=== PATIENT | male | born 1955 | race Caucasian/White ===

== ENCOUNTER 2017-10-28 10:57 | Day surgery (SDC) | payer OTHER, SELFPAY ==
[2017-10-28] VITALS (7 sets, daily range): BP systolic 113–130; BP diastolic 80–94; PULSE 64–74; RESP 16; TEMP 35.8–36.4; O2SAT 97–99; BMI 33.9
--- NOTE | 2017-10-28 11:14 | EKG12_ITS ---
Test Reason : PREOP Blood Pressure : / mmHG Vent. Rate : 066 BPM Atrial Rate : 066 BPM P-R Int : 168 ms QRS Dur : 098 ms QT Int : 410 ms P-R-T Axes : 046 056 026 degrees QTc Int : 429 ms Normal sinus rhythm Normal ECG No previous ECGs available Confirmed by LASHONDA LUNDBERG, RIKY ([id number]), film editor supervisor GLENDY ATKINSON ([id number]) on 11/03/2017 1:41:19 PM Referred By: Efe Felix Confirmed By:RIKY GALLEGO MD
[2017-10-28 11:31] LABS: Hematocrit 47.3 % (40-54); Hemoglobin 16.3 g/dl (13.0-16.5); Mean Corp Hgb Conc 34.5 g/gl (32-36); Mean Corpuscular Hgb 31.5 pg (27.0-32.0); Mean Corpuscular Volume 91.3 fL (80-94); Mean Platelet Vol. 10.9 fl (6.2-12.0); Platelet Count 174 K/mm3 (150-450); RBC Distribution Width CV 13.1 % (11.6-14.6); RBC Distribution Width SD 43.1 fl (35.1-43.9); Red Blood Count 5.18 M/mm3 (4.6-6.2); White Blood Count 7.7 K/mm3 (4.4-11.0)
[2017-10-28 11:36] LABS: Scan Indicated on CBC? Y/N NO
[2017-10-28 11:39] LABS: Anion Gap 7 (5-15); BUN 22 mg/dL (7-18); BUN/Creat Ratio 15.6 RATIO (10-20); Calcium,Total 8.7 mg/dL (8.5-10.1); Chloride 108 mmol/L (98-107); Creatinine, Serum 1.41 mg/dL (0.70-1.30); EST Glomerular Filtration Rate 54 mL/min (>60); Est Glom Filt Rate - Afr Amer 65 mL/min (>60); Estimated Creatinine Clearance 47.76 ml/min; Glucose 124 mg/dL (74-106); Sodium Level 140 mmol/L (136-145)
[2017-10-28 11:40] LABS: Bedside Glucose 121 mg/dL (70-110)
--- NOTE | 2017-10-28 13:00 | LES_PTH ---
PATIENT: SATINDER WALTER LOC: [facility] – [place] U#:[id number] AGE/SX: 62/M ROOM: RE10/28/[address]: Dr. Efe Felix MD : 1955 BED: DIS: 10/28/2017 SPEC #: [id number] RECD: 10/28/17 15:17 STATUS: MICHAEL ISAURA #: [id number] YURI: 10/28/17 13:[address]: Efe Felix DEPT: SURGICAL PATHOLOGY RECD BY: Melchor Matthews ENTERED: 10/29/17 09:28 SP TYPE: Lesion OTHR DR: Dr. 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 See comment. Solar elastosis. COMMENT The tumor measures 1 x 1 cm (measured microscopically) and invades in to the superficial portion of underlying skeletal muscle tissue. Perineural invasion is not seen. The tumor is less than 0.1 cm away from the deep resection margin. MICROSCOPIC DESCRIPTION Slides are reviewed. GROSS DESCRIPTION Received in fixative is one container labeled with the patient's name and designated left forehead skin lesion. The specimen consists of discoid fragment of pink/gasca excised skin measuring 2.2 x 2 and depth of excision measuring 1.1 cm. The specimen is differentiated with ink as follows: superior ? blue, inferior ? black, medial ? orange, and lateral ? green. The specimen is serially sectioned and totally submitted in two cassettes. AM/sp 10/29/17 TC: 0 CPT: 11794 ADDENDUM ADDENDUM ADDENDUM ADDENDUM 11/26/2017 11:56 ADDENDUM 11/26/2017 11:56 ADDENDUM 11/26/2017 11:56 ADDENDUM 11/26/2017 11:56 ADDENDUM 11/26/2017 11:56 The tumor measures 0.9 mm in depth and is present <1 mm from the deep margin of resection. Case was discussed with Dr. Munoz 11/24/17.
--- NOTE | 2017-10-28 13:06 | DCINST_ITS ---
Discharge Diet: Light diet - advance as tolerated - if you have questions about your diet instructions, please talk to you doctor. Discharge Activity: May Drive, May Not Shower May shower in (days): 7 Lifting Restrictions: 10 pounds Call your doctor if your incision/area has: Continuous Slow Oozing, Sudden Increased Bleeding, Increased Pain/ Swelling, Increased Redness, Foul Smelling Discharge Call your doctor if you observe: Fever of 101 or Higher Suture Line Care: Avoid Pulling/Pushing, Avoid Pinching/Bending Additional Dressing/Incision Instructions:: Please keep your incisions clean and dry. Allergies/Adverse Reactions: Allergies amoxicillin [From Augmentin] Allergy (Mild, Verified 10/27/17 09:54) Unknown clavulanic acid [From Augmentin] Allergy (Mild, Verified 10/27/17 09:54) Unknown tylenol with codeine Allergy (Mild, Uncoded 10/27/17 09:54) Unknown Medications to take at Discharge atenolol 25 mg tablet 25 mg PO DAILY 10/21/17 atorvastatin 80 mg tablet 80 mg PO DAILY 10/21/17 colchicine 0.6 mg tablet 1.2 mg PO DAILY 10/21/17 glimepiride 2 mg tablet 2 mg PO QAM 10/21/17 metformin 500 mg tablet 500 mg PO BID 10/21/17 Hydrocodone Bitart/Apap 5-325 [Yeaddiss 5MG-325MG] 1 tab PO Q6H PRN PRN 3 Days #6 tab 10/28/17 Hydrocodone/Acetaminophen [Yeaddiss 5-325 Tablet] 1 each PO Q4H PRN PRN 3 Days #6 tablet 10/28/17 The following prescriptions were given: Hydrocodone/Acetaminophen [Yeaddiss 5-325 Tablet] 1 each PO Q4H PRN PRN 3 Days #6 tablet PRN Reason: Pain Hydrocodone Bitart/Apap 5-325 [Yeaddiss 5MG-325MG] 1 tab PO Q6H PRN PRN 3 Days #6 tab PRN Reason: Pain Primary Care Physician: Montez Aggarwal MD [Primary Care Provider] - Please Follow Up With: Efe Felix MD - [phone] When: Call to make an appointment to be seen in about 6 days.
[2017-10-28] MEDS: Bupivacaine 0.25% 30 ML Vial (13:59)
--- NOTE | 2017-10-28 15:12 | PCM.OPRPT ---
Report of Operation Date of Procedure: 10/28/17 Pre-Operative Diagnosis: Left supraorbital forehead skin lesion Post-Operative Diagnosis: Same Surgery/Procedure Performed:: Postauricular neck wide excision left supraorbital skin lesion with full-thickness skin grafting left Description of Surgical Findings:: Timeout and informed consent was obtained. 62-year-old gentleman was taken out from placement table. He underwent monitored anesthesia care. The left neck face forehead was sterilely prepped and draped with Betadine. 1% lidocaine mixed 50-50 with 0.5% Marcaine was used as a local anesthetic. Throughout the procedure total of local was instilled both of the neck and the forehead site. In the infra auricular neck a 4 cm long ellipse of skin was excised. I then raised skin flaps. That wound was approximated with a combination of interrupted 4-0 chromic subdermal stitches in interrupted 3-0 chromic subdermal stitches and a running suture of 4-0 nylon. I then addressed the lesion. A 2.7 x 2.4 cm circular excision of skin and lesion was performed. The hair from the eyebrow represented the inferior margin and I placed a suture medially. Hemostasis obtained with interrupted 4-0 chromic and electrocautery. The full thickness portion of skin was then defatted and thinned. It was then shaped into more of a circular piece. I then meticulously sutured in place with multiple interrupted 5-0 nylon sutures. Great care was taken to exsanguinate the base. I then placed bolster sutures of 2-0 silk. Adaptic and moistened cotton balls were applied and secured with the bolster sutures. Dry cover dressings were applied. Sponge instrument and needle counts were reported to the surgeon to be correct. Loss was 100 cc. The lesion itself measured at least 2 cm in diameter and was submitted in formalin. Final pathology pending. No drains. He was taken to the recovery room in satisfactory condition. Efe Felix M.D., F.A.C.S. Type of Anesthesia:: Local MAC Anesthesiologist: Lilian Carpenter
== END 2017-10-28 16:47 | disposition home or self-care (01) ==
LOC: SDC 10:58 → AC 11:00
PROVIDERS: Anesthesiology; Family Provider Family Medicine; PCP Family Medicine; Visit Provider Surgery
PROC: (CPT 11643; principal; 2017-10-28 12:45)
DX: C44.329 Squamous cell carcinoma of skin of other parts of face (principal); L57.8 Other skin changes due to chronic exposure to nonionizing radiation; E11.9 Type 2 diabetes mellitus without complications; Z79.899 Other long term (current) drug therapy; I10 Essential (primary) hypertension; Z79.84 Long term (current) use of oral hypoglycemic drugs; E78.5 Hyperlipidemia, unspecified
CPT/HCPCS: 11643; 15240; 80048; 82962; 85027; 88305; 93005; J7120

== ENCOUNTER 2017-12-11 06:29 | Day surgery (SDC) | payer OTHER, SELFPAY ==
--- NOTE | 2017-12-10 21:11 | HP.PCM_ITS ---
History and Physical Date of Admission: 12/11/17 HISTORY OF PRESENT ILLNESS 62 year old man presents for evaluation of a squamous cell carcinoma of his left lateral forehead by the eyebrow that was excised on 10/28/[address] Felix. Pathology showed squamous cell carcinoma with clear margins but it was very close to the deep margin with some superficial involvement of the muscle. The wound was reconstructed with skin grafting that is healing satisfactory at this time with a small area of eschar that is being treated with Silvadene. I was asked to evaluate this patient for surgical options for further treatment. 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 Diabetes mellitus. Gout. Hyperlipidemia. Hypertension. PAST SURGICAL HISTORY Excision squamous cell carcinoma left lateral forehead by the eyebrow with FTSG reconstruction from the left postauricular area (6.5 cm2) - 10/28/17 Colonoscopy. MEDICATIONS Atenolol. Lipitor. Colchicine. Amaryl. Metformin. ALLERGIES Amoxicillin. Tylenol with codeine. SOCIAL HISTORY Patient does not smoke. Patient does not drink alcohol. FAMILY HISTORY Negative for skin cancer. Mother - Colon cancer and Hypertension. Father - CAD. REVIEW OF SYSTEMS General - Denies fever, fatigue, and weight loss. Eyes - Denies cataracts and glaucoma. ENT - Denies nasal congestion and sore throat. Endocrine - Denies excessive thirst and urination. Skin - Has recent excision of squamous cell carcinoma left lateral forehead by the eyebrow. Musculoskeletal - Denies joint pain, joint stiffness, weakness of muscles and joints, back pain, arthritis. Has gout. Neuro - Denies headaches. Cardiovascular - Denies chest pain. Denies fatigue. Denies shortness of breath with exertion. Psych - Denies anxiety and depression,. Respiratory - Denies chronic cough and sore throat. Gastrointestinal - Denies nausea, vomiting, diarrhea, and constipation. Hematologic - Denies abnormal bruising and bleeding. Genitourinary - Denies hematuria and urinary frequency. PHYSICAL EXAMINATION General - Alert and oriented. HEENT - PERRL. EOMI. Throat is clear. On the left lateral forehead by the eyebrow is a healing skin graft from previous excision of squamous cell carcinoma. Small eschar on graft being treated with Silvadene. Length of graft is 2.5 cm. Able to elevate his eyebrows. Neck - Supple and nontender. No cervical adenopathy. Lungs - Clear to auscultation. Heart - Regular rate and rhythm. Abdomen - Soft and nondistended. Extremities - Full range of motion. No axillary adenopathy. Radial pulses are palpable. Neuro - CN II - XII grossly intact. ASSESSMENT Squamous cell carcinoma left lateral forehead by the eyebrow. PLAN The skin graft is healing satisfactory at this time and will continue the present management with application of Silvadene. The Pathology report was reviewed. It was an invasive well-differentiated squamous cell carcinoma with focal ulceration. The margins are free but the tumor is less than 0.1 cm away from the deep resection margin which included some superficial muscle as there was some invasion in to the superficial portion of the muscle. Perineural invasion was not seen. My first recommendation is to re-excise the area down to the bone. Since there was focal ulceration, additional skin margin will be obtained as well. Initially will leave the wound open and proceed with daily dressing changes with a Silver dressing until the final Pathology is available. If there is still an issue with the deep margin at the level of the bone, then further evaluation will need to be done at a tertiary center with Neurosurgery because bone would be removed followed by bone stabilization and complex soft tissue reconstruction. By leaving the wound open initially, it would be easier for them to proceed with additional excision with reconstruction. If I proceed right away with soft tissue flap reconstruction of the defect after re-excision to the bone, and if the patient would need to go to a tertiary center, the flap incisions would be problematic since additional excision would make the wound larger and the flaps too small for coverage. This would add complexity to the soft tissue reconstruction. Based on the Pathology report after re-excision, it might be prudent to add postop radiation as well. With the superficial portion of the muscle involved with tumor, sometimes more tissue needs to be removed than anticipated. This might necessitate additional excision prior to reconstruction. One way to combat the extra trip to the OR is to have the excision done using Moh's micrographic surgery which is done by a [employer] Sales Supervisor. If he chooses this modality, the Moh's removal would be done out of town as well. But once they are done, the wound defect would be ready for reconstruction as the margins would be negative at that point. If the patient is not interested in any surgery at all, then evaluation by Radiation Oncology can be done. Because of his younger age, I would not recommend radiation as my first choice. This is usually reserved as a first choice for patients that are at risk for further surgery or if they are of advanced age, (i.e., greater than 80). The initial re-excision can be done on an outpatient basis under local anesthesia and IV sedation. At the time of the soft tissue reconstruction, assuming no bone needs to be removed, complex forehead flaps would be used with dissection usually of the entire forehead in order to advance to close the defect. Drains would be necessary. Sometimes the lateral donor areas where the flaps were raised may need to be skin grafted. This reconstruction surgery would be done under general anesthesia with a surgical observation overnight stay in the hospital. Patient thought about his options and decided to proceed with the surgery. Patient was informed of the risks and complications of the procedure including alternatives to surgery. These were discussed with him personally. He voices understanding and wishes to proceed. It was also discussed with the patient that additional surgery would lead to some numbness on the forehead because of the excision down to the bone would certainly injure the supraorbital sensory nerve. The temporal branch of the facial nerve enters the frontalis muscle more laterally than where the skin graft is located. However with removal of some of the muscle, he may develop some mild brow ptosis. If it doesn't resolve than a brow lift can be discussed in the future for reconstruction if the ptosis is problematic with decreased lateral field of vision.
[2017-12-11 07:10] VITALS: BP 138/97; PULSE 66; RESP 16; TEMP 36.9; O2SAT 97; BMI 34.2
[2017-12-11 07:31] LABS: Bedside Glucose 104 mg/dL (70-110)
--- NOTE | 2017-12-11 08:00 | LES_PTH ---
PATIENT: SATINDER WALTER LOC: [facility] – [place] U#:[id number] AGE/SX: 62/M ROOM: RE12/11/[address]: Dr. Sergei Page MD : 1955 BED: DIS: 12/11/2017 SPEC #: [id number] RECD: 12/11/17 10:35 STATUS: MICHAEL ISAURA #: [id number] YURI: 12/11/17 08:[address]: Sergei Page DEPT: SURGICAL PATHOLOGY RECD BY: Melchor Matthews ENTERED: 12/11/17 11:53 SP TYPE: Lesion OTHR DR: Dr. Montez Aggarwal MD Tissues: Skin of forehead Procedures: Surgery Specimen Level IV HEADER OPERATION: Excision squamous cell cancer, skin graft scar including left lateral forehead PRE-OP DIAGNOSIS: Squamous cell carcinoma left lateral forehead by eyebrow TISSUE SUBMITTED: Squamous cell carcinoma skin graft scar left lateral by eyebrow, suture at 12 o?clock MICROSCOPIC DIAGNOSIS Squamous cell carcinoma, skin graft scar left lateral by eyebrow, excision: Dermal fibrosis consistent with scar. Solar elastosis and dermal chronic inflammation. Negative for malignancy. AMAYA:sahil 12/14/17 COMMENT Please make reference to previous specimen ([id number]) right forehead lesion, excisional biopsy with diagnosis of invasive well differentiated squamous cell carcinoma. MICROSCOPIC DESCRIPTION Slides are reviewed. GROSS DESCRIPTION Received in fixative is one container labeled with the patient's name and designated squamous cell carcinoma. The specimen consists of a discoid fragment of gasca skin with attached soft tissue measuring 3 x 2.5 cm and depth of excision measuring 1.2 cm. The cutaneous surface displays a shallow ulcer measuring 1.5 x 1 x 0.2 cm. The specimen is differentially inked as follows: 12 o?clock ? black, 6 o?clock ? blue, 3 o?clock ? green and 9 o?clock ? red. The specimen is serially sectioned in a 12 through 6 o?clock orientation and totally submitted in four cassettes. / AM:sahil 12/11/17 TC:5 CPT: 91928
[2017-12-11] MEDS: Clindamycin 900 MG/50 ML BAG 75 MG IV (08:01)
--- NOTE | 2017-12-11 08:55 | OP.PN_ITS ---
Immediate Post-Op Note Date of Procedure: 12/11/17 Primary Surgeon/Physician: Sergei Page supervisor laundry: None Pre-Operative Diagnosis: 2.5 cm squamous cell carcinoma skin graft scar left lateral forehead by the eyebrow involving superficial muscle. Post-Operative Diagnosis: Same. Surgery/Procedure Performed:: Wide excision 2.5 cm squamous cell carcinoma skin graft scar left lateral forehead by the eyebrow involving superficial muscle. Description of Surgical Findings:: 62 year old man presents for evaluation of a squamous cell carcinoma of his left lateral forehead by the eyebrow that was excised on 10/28/[address] Felix. Pathology showed squamous cell carcinoma with clear margins but it was very close to the deep margin with some superficial involvement of the muscle. The wound was reconstructed with skin grafting that is healing satisfactory at this time. Further operative excision was recommended including the underlying muscle to get adequate margins prior to reconstruction. He understands that the wound will be left open initially until the final pathology is available. Today the patient underwent wide excision 2.5 cm squamous cell carcinoma skin graft scar left lateral forehead by the eyebrow involving superficial muscle. Size of defect left lateral forehead area - 3.7 x 3.7 x 1 cm. Estimated Blood Loss: 20 ml. Specimen's removed: Squamous cell carcinoma skin graft scar left lateral forehead by the eyebrow involving superficial muscle to Pathology. Drains: None. Type of Anesthesia:: General - Admit VTE Documentation VTE Present on Admission: No VTE Mechan Device Prophylaxis: SCD's VTE Pharm Prophylaxis ordered?: No
[2017-12-11 08:58] VITALS: BP 107/82; BP 138/97; PULSE 76; RESP 12; TEMP 36.1; O2SAT 93
[2017-12-11 09:00] VITALS: BP 117/72; BP 138/97; PULSE 74; RESP 15; O2SAT 93
--- NOTE | 2017-12-11 09:03 | PCM.DC ---
You will use the following diet at home:: No restrictions Discharge Activity: May not drive while taking narcotic pain medications., May Shower - from the neck down. Wash face gently in the sink. Avoid getting the dressing wet. May shower in (days): 1 - from the neck down only. May resume sexual activity in: No Restrictions Ice area for (Minutes): 5 - as needed for facial swelling. Weight Bearing Status: Weight bearing as tolerated Lifting Restrictions: 20 lbs. Keep extremity elevated above heart level: - - elevate head. Call your doctor if your incision/area has: Continuous Slow Oozing, Sudden Increased Bleeding, Increased Pain/ Swelling, Increased Redness, Foul Smelling Discharge, Swelling at the incision site Call your doctor if you observe: Fever of 101 or Higher, Coldness, Increased Pain, Shortness of breath, Chest pain, Calf discomfort, Uncontrolled pain Suture Line Care: - - daily silver dressing changes after dressing removed in office. Change Dressing in (Days):: 3 - will change dressing in office. Cleanse incision/area with: - - may get wound wet in the shower after the dressing is removed in the office. until then may shower from the neck down. Allergies/Adverse Reactions: Allergies amoxicillin [From Augmentin] Allergy (Mild, Verified 12/07/17 14:41) Unknown clavulanic acid [From Augmentin] Allergy (Mild, Verified 12/07/17 14:41) Unknown tylenol with codeine Allergy (Mild, Uncoded 12/07/17 14:41) Unknown Medications to take at Discharge atenolol 25 mg tablet 25 mg PO DAILY 10/21/17 atorvastatin 80 mg tablet 80 mg PO DAILY 10/21/17 colchicine 0.6 mg tablet 1.2 mg PO DAILY 10/21/17 glimepiride 2 mg tablet 2 mg PO QAM 10/21/17 metformin 500 mg tablet 500 mg PO BID 10/21/17 Clindamycin [Cleocin] 300 mg PO TID #15 cap 12/11/17 L. Acidophilus/Pectin, [place] [Acidophilus-Pectin Captab] 1 ea PO BID #10 tab 12/11/17 Oxycodone HCl/Acetaminophen [Percocet 5/325] 1 - 2 tab PO 4X/DAY PRN PRN 4 Days #30 tab 12/11/17 The following prescriptions were given: Oxycodone HCl/Acetaminophen [Percocet 5/325] 1 - 2 tab PO 4X/DAY PRN PRN 4 Days #30 tab PRN Reason: Pain L. Acidophilus/Pectin, [place] [Acidophilus-Pectin Captab] 1 ea PO BID #10 tab Clindamycin [Cleocin] 300 mg PO TID #15 cap Primary Care Physician: Montez Aggarwal MD [Primary Care Provider] - Please Follow Up With: Sergei Page MD When: thursday12/14/17. call [phone] for appt. Proposed Discharge Date: 12/11/17
[2017-12-11 09:15] VITALS: BP 113/70; BP 138/97; PULSE 76; RESP 16; TEMP 36; O2SAT 95
[2017-12-11 09:45] VITALS: BP 138/97
--- NOTE | 2017-12-11 16:51 | PCM.OPRPT ---
Report of Operation Date of Procedure: 12/11/17 Pre-Operative Diagnosis: 2.5 cm quamous cell carcinoma skin graft scar left lateral forehead by the eyebrow involving superficial muscle. Post-Operative Diagnosis: Same. Surgery/Procedure Performed:: Wide excision 2.5 cm squamous cell carcinoma skin graft scar left lateral forehead by the eyebrow involving superficial muscle. Description of Surgical Findings:: 62 year old man presents for evaluation of a squamous cell carcinoma of his left lateral forehead by the eyebrow that was excised on 10/28/[address] Felix. Pathology showed squamous cell carcinoma with clear margins but it was very close to the deep margin with some superficial involvement of the muscle. The wound was reconstructed with skin grafting that is healing satisfactory at this time. Further operative excision was recommended including the underlying muscle to get adequate margins prior to reconstruction. Patient was informed of the risks and complications of the procedure including alternatives to surgery. These were discussed with him personally. He voices understanding and wishes to proceed. He understands that the wound will be left open initially until the final pathology is available. Size of defect left lateral forehead area - 3.7 x 3.7 x 1 cm. principal technical specialist: None Type of Anesthesia:: General Specimen's removed: Squamous cell carcinoma skin graft scar left lateral forehead by the eyebrow involving superficial muscle to Pathology. Drains: None. Estimated Blood Loss (mL): 20 ml. Description of Procedure: Patient was taken to OR in supine position and was placed under general anesthesia. His forehead was prepped and draped in the usual fashion. SCD's were placed for DVT prophylaxis. Perioperative antibiotics were given intravenously. Using xylocaine with epinephrine, the skin graft was infiltrated. After waiting 5 minutes for the anesthetic to take effect, I proceeded with the excision. The initial excision had a 4 mm margin. Will extend that to a 1 cm margin so will add an additional margin of 6 mm. So I marked out a margin of 6 mm from the skin graft in all directions. Using a scalpel I excised the squamous cell carcinoma skin graft scar down through the muscle until the periosteum was seen. There was a clear plane of dissection between the muscle and the periosteum. The periosteum was left intact. No exposed bone was noted. Part of the excision extended into the lateral eyebrow. At the time of wound reconstruction, can proceed with eyebrow reconstruction with advancement flaps to maintain eyebrow continuity. A suture was marked at the 12 oclock position for pathology orientation. The specimen was then sent to Pathology for analysis to rule out carcinoma at the margins. Hemostasis was obtained with electrocautery. I then dressed the wound with Aquacel Silver and secured the dressing with 4-0 Nylon tie over stent suture dressing. A 2x2 gauze was used for a compression dressing. Patient tolerated the procedure well and was sent to PACU in satisfactory condition. He will be sent home in satisfactory condition on antibiotics and pain medication. He will followup in the office on Thursday for a wound dressing change and to instruct the patient on the daily Silver dressing change. When the pathology becomes available, will schedule the wound reconstruction surgery with advancement and rotation skin flaps with possible skin grafting. Grafts/Implants Used: None. - Complications None. - Admit VTE Documentation VTE Present on Admission: No VTE Mechan Device Prophylaxis: SCD's VTE Pharm Prophylaxis ordered?: No Code Visit Surgery Charges CPT - 98843 ICD-10 - C44.329
== END 2017-12-11 09:48 | disposition home or self-care (01) ==
LOC: SDC 06:29 → AC 06:30
PROVIDERS: Family Provider Family Medicine; PCP Family Medicine; Visit Provider Surgery
PROC: (CPT 11644; principal; 2017-12-11 07:50)
DX: C44.329 Squamous cell carcinoma of skin of other parts of face (principal); L57.8 Other skin changes due to chronic exposure to nonionizing radiation; T86.828 Other complications of skin graft (allograft) (autograft); Y83.2 Surgical operation with anastomosis, bypass or graft as the cause of abnormal reaction of the patient, or of later complication, without mention of misadventure at the time of the procedure; E11.9 Type 2 diabetes mellitus without complications; Z79.899 Other long term (current) drug therapy; Z79.84 Long term (current) use of oral hypoglycemic drugs; I10 Essential (primary) hypertension; E78.5 Hyperlipidemia, unspecified; M10.9 Gout, unspecified
CPT/HCPCS: 11644; 82962; 88305; J7120

== ENCOUNTER 2018-01-11 12:34 | Day surgery (SDC) | payer OTHER, SELFPAY ==
--- NOTE | 2018-01-08 | LES_PTH ---
PATIENT: SATINDER WALTER LOC: [facility] U#:[id number] AGE/SX: 62/M ROOM: RE01/11/[address]: Dr. Sergei Page MD : 1955 BED: DIS: 01/11/2018 SPEC #: [id number] RECD: 01/11/18 15:19 STATUS: MICHAEL ISAURA #: [id number] YURI: 01/08/18 00:[address]: Sergei Page DEPT: SURGICAL PATHOLOGY RECD BY: Thomas Razo ENTERED: 01/11/18 15:19 SP TYPE: Lesion OTHR DR: Dr. Montez Aggarwal MD Tissues: Skin of forehead Procedures: Surgery Specimen Level IV HEADER OPERATION: Complex reconstruction squamous cell carcinoma, left lateral forehead wound effect, advancement eyebrow flaps, advancement skin flaps PRE-OP DIAGNOSIS: Squamous cell carcinoma of forehead; open wound of forehead without complication TISSUE SUBMITTED: Squamous cell carcinoma, wound left lateral forehead by eyebrows MICROSCOPIC DIAGNOSIS Skin and soft tissue, left lateral forehead by eyebrows, excision: Ulceration with associated acute and chronic inflammation and granulation. Suture granulomas. Solar elastosis, focal. No evidence of malignancy. AM:sahil 01/12/18 COMMENT Case has been reviewed in consultation with Dr. Hernandez who concurs with the above diagnosis. IDC:AMAYA MICROSCOPIC DESCRIPTION Slides are reviewed. GROSS DESCRIPTION Received in fixative is one container labeled with the patient's name and designated squamous cell carcinoma, wound left lateral forehead by eyebrows. The specimen consists of a srinivas-shaped piece of gasca-white skin with extensive ulceration measuring 2.5 x 2.5 cm and up to 0.4 cm in thickness. The specimen is inked, serially sectioned and submitted entirely in two cassettes. / AMAYA:sahil 01/11/18 TC:2 CPT: 14469
--- NOTE | 2018-01-11 12:34 | DT_ITS ---
This patient was seen during an EMR downtime January 04, 2018 - January 11, 2018. This patient may have a combination of paper and electronic documentation or all paper documentation. All documentation is viewable within the e-chart portion of [employer] for each patient visit.
--- NOTE | 2018-01-11 13:48 | HP.PCM_ITS ---
History and Physical Date of Admission: 01/11/18 HISTORY OF PRESENT ILLNESS 62 year old man presents for evaluation of a squamous cell carcinoma of his left lateral forehead by the eyebrow that was excised on 10/28/[address] Felix. Pathology showed squamous cell carcinoma with clear margins but it was very close to the deep margin with some superficial involvement of the muscle. The wound was reconstructed with skin grafting. He went to surgery on 12/11/17 where he underwent wide excision 2.5 cm squamous cell carcinoma skin graft scar left lateral forehead by the eyebrow involving superficial muscle. Pathology was negative for residual carcinoma. He presents today for wound closure with skin flaps and possible skin grafts. 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 Diabetes mellitus. Gout. Hyperlipidemia. Hypertension. PAST SURGICAL HISTORY Excision squamous cell carcinoma left lateral forehead by the eyebrow with FTSG reconstruction from the left postauricular area (6.5 cm2) - 10/28/17 Colonoscopy. Wide excision 2.5 cm squamous cell carcinoma skin graft scar left lateral forehead by the eyebrow involving superficial muscle - 12/11/17 MEDICATIONS Atenolol. Lipitor. Colchicine. Amaryl. Metformin. ALLERGIES Amoxicillin. Tylenol with codeine. SOCIAL HISTORY Patient does not smoke. Patient does not drink alcohol. FAMILY HISTORY Negative for skin cancer. Mother - Colon cancer and Hypertension. Father - CAD. REVIEW OF SYSTEMS General - Denies fever, fatigue, and weight loss. Eyes - Denies cataracts and glaucoma. ENT - Denies nasal congestion and sore throat. Endocrine - Denies excessive thirst and urination. Skin - Has recent excision of squamous cell carcinoma left lateral forehead by the eyebrow. Musculoskeletal - Denies joint pain, joint stiffness, weakness of muscles and joints, back pain, arthritis. Has gout. Neuro - Denies headaches. Cardiovascular - Denies chest pain. Denies fatigue. Denies shortness of breath with exertion. Psych - Denies anxiety and depression,. Respiratory - Denies chronic cough and sore throat. Gastrointestinal - Denies nausea, vomiting, diarrhea, and constipation. Hematologic - Denies abnormal bruising and bleeding. Genitourinary - Denies hematuria and urinary frequency. PHYSICAL EXAMINATION General - Alert and oriented. HEENT - PERRL. EOMI. Throat is clear. On the left lateral forehead by the eyebrow is a healing squamous cell carcionoma wound. Measures 3 x 3 cm. Some involvement of the eyebrow is noted. Able to elevate his eyebrows. Neck - Supple and nontender. No cervical adenopathy. Lungs - Clear to auscultation. Heart - Regular rate and rhythm. Abdomen - Soft and nondistended. Extremities - Full range of motion. No axillary adenopathy. Radial pulses are palpable. Neuro - CN II - XII grossly intact. ASSESSMENT 3 cm squamous cell carcinoma wound left lateral forehead with extension into the eyebrow. PLAN The wound is stable. Recommend wound closure forehead defect with forehead advancement skin flaps and possible skin grafting. The eyebrow defect will be closed with eyebrow advancement skin flaps. Surgery will be done under general anesthesia on an outpatient basis. Any debridement tissue will be sent to Pathology. Patient was informed of the risks and complications of the procedure including alternatives to surgery. These were discussed with him personally. He voices understanding and wishes to proceed. Some of the risks and complications were included in a form from the [place] [employer]. It was also discussed with the patient that additional surgery would lead to some numbness on the forehead because of the excision down to the bone would certainly injure the supraorbital sensory nerve. The temporal branch of the facial nerve enters the frontalis muscle more laterally than where the skin graft is located. However with removal of some of the muscle, he may develop some mild brow ptosis. If it doesn't resolve than a brow lift can be discussed in the future for reconstruction if the ptosis is problematic with decreased lateral field of vision.
--- NOTE | 2018-01-11 15:40 | OP.PN_ITS ---
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 Post-Operative Diagnosis: Same. Surgery/Procedure Performed:: Reconstruction 3 cm squamous cell carcinoma wound defect left lateral forehead with extension into eyebrow with bilateral horizontal rectangular forehead advancement skin flaps (18 cm2) and bilateral horizontal rectangular eyebrow advancement skin flaps (9 cm2). Description of Surgical Findings:: 62 year old man presents for evaluation of a squamous cell carcinoma of his left lateral forehead by the eyebrow that was excised on 10/28/[address] Felix. Pathology showed squamous cell carcinoma with clear margins but it was very close to the deep margin with some superficial involvement of the muscle. The wound was reconstructed with skin grafting. He went to surgery on 12/11/17 where he underwent wide excision 2.5 cm squamous cell carcinoma skin graft scar left lateral forehead by the eyebrow involving superficial muscle. Pathology was negative for residual carcinoma. He presents today for wound closure with skin flaps and possible skin grafts. Today the patient underwent reconstruction 3 cm squamous cell carcinoma wound defect left lateral forehead with extension into eyebrow with bilateral horizontal rectangular forehead advancement skin flaps (18 cm2) and bilateral horizontal rectangular eyebrow advancement skin flaps (9 cm2). Estimated Blood Loss: 25 ml. Specimen's removed: Squamous cell carcinoma wound left lateral forehead to Pathology. Drains: None. Type of Anesthesia:: General - Admit VTE Documentation VTE Present on Admission: No VTE Mechan Device Prophylaxis: SCD's VTE Pharm Prophylaxis ordered?: No
--- NOTE | 2018-01-11 15:48 | PCM.DC ---
You will use the following diet at home:: Calorie/Carbohydrate Controlled (specify 1200, 1400, etc) Discharge Activity: May not drive while taking narcotic pain medications., - - no heavy lifting. head elevated. May shower in (days): 2 May resume sexual activity in: 10-14 days Ice area for (Minutes): 5 - as needed for facial and periorbital swelling. Weight Bearing Status: Weight bearing as tolerated Lifting Restrictions: 10 lbs. Keep extremity elevated above heart level: - - elevate head. Call your doctor if your incision/area has: Continuous Slow Oozing, Sudden Increased Bleeding, Increased Pain/ Swelling, Increased Redness, Foul Smelling Discharge, Swelling at the incision site Call your doctor if you observe: Fever of 101 or Higher, Coldness, Increased Pain, Shortness of breath, Chest pain, Calf discomfort, Uncontrolled pain Suture Line Care: - - antibiotic ointment to suture line daily. Cleanse incision/area with: - - may get incisions wet in the shower in two days. Allergies/Adverse Reactions: Allergies amoxicillin [From Augmentin] Allergy (Mild, Verified 12/14/17 14:21) Unknown clavulanic acid [From Augmentin] Allergy (Mild, Verified 12/14/17 14:21) Unknown tylenol with codeine Allergy (Mild, Uncoded 12/14/17 14:21) Unknown Medications to take at Discharge atenolol 25 mg tablet 25 mg PO DAILY 10/21/17 atorvastatin 80 mg tablet 80 mg PO DAILY 10/21/17 colchicine 0.6 mg tablet 1.2 mg PO DAILY 10/21/17 glimepiride 2 mg tablet 2 mg PO QAM 10/21/17 metformin 500 mg tablet 500 mg PO BID 10/21/17 Clindamycin HCl [Cleocin HCl] 300 mg PO TID #15 cap 01/11/18 L. Acidophilus/Pectin, [place] [Acidophilus-Pectin Captab] 1 ea PO BID #10 tab 01/11/18 Oxycodone HCl/Acetaminophen [Percocet 5-325] 1 - 2 tab PO 4X/DAY PRN PRN 4 Days #30 tab 01/11/18 The following prescriptions were given: Oxycodone HCl/Acetaminophen [Percocet 5-325] 1 - 2 tab PO 4X/DAY PRN PRN 4 Days #30 tab PRN Reason: Pain L. Acidophilus/Pectin, [place] [Acidophilus-Pectin Captab] 1 ea PO BID #10 tab Clindamycin HCl [Cleocin HCl] 300 mg PO TID #15 cap Primary Care Physician: Montez Aggarwal MD [Primary Care Provider] - Please Follow Up With: Sergei Page MD When: one week. call [phone] for appt. Proposed Discharge Date: 01/11/18
--- NOTE | 2018-01-11 23:50 | OP.PCM_ITS ---
Report of Operation Date of Procedure: 01/11/18 Pre-Operative Diagnosis: 3 cm squamous cell carcinoma wound left lateral forehead with extension into the eyebrow. Post-Operative Diagnosis: Same. Surgery/Procedure Performed:: Reconstruction 3 cm squamous cell carcinoma wound defect left lateral forehead with extension into eyebrow with bilateral horizontal rectangular forehead advancement skin flaps (18 cm2) and bilateral horizontal rectangular eyebrow advancement skin flaps (9 cm2). Description of Surgical Findings:: 62 year old man presents for evaluation of a squamous cell carcinoma of his left lateral forehead by the eyebrow that was excised on 10/28/[address] Felix. Pathology showed squamous cell carcinoma with clear margins but it was very close to the deep margin with some superficial involvement of the muscle. The wound was reconstructed with skin grafting. He went to surgery on 12/11/17 where he underwent wide excision 2.5 cm squamous cell carcinoma skin graft scar left lateral forehead by the eyebrow involving superficial muscle. Pathology was negative for residual carcinoma. He presents today for wound closure with skin flaps and possible skin grafts. Patient was informed of the risks and complications of the procedure including alternatives to surgery. These were discussed with him personally. He voices understanding and wishes to proceed. Some of the risks and complications were included in a form from the [employer]. 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 Drains: None. Estimated Blood Loss (mL): 25 ml. Description of Procedure: Patient was taken to OR in supine position and was placed under general anesthesia. His face and neck were prepped and draped in the usual fashion. SCD's were placed for DVT prophylaxis. Perioperative antibiotics were given intravenously. Using xylocaine with epinephrine, the squamous cell carcinoma wound was infiltrated. I marked out horizontal skin flaps on the forehead and on the eyebrow. These markings were also infiltrated. After waiting 5 minutes for the anesthetic to take effect, I proceeded with excisional debridement of the wound into the underlying muscle. This debridement wound tissue was sent to Pathology for analysis to rule out carcinoma. The wound defect involved the forehead and a portion of the eyebrow. Hemostasis was obtained with electrocautery. Horizontal incisions were made on the forehead bilaterally on either side of the wound. Flaps were elevated at the level of the underlying muscle. The size of the horizontal forehead flaps were 3 x 2 cm on either side of the squamous cell carcinoma wound. I created separate horizontal flaps on the eyebrow. These flaps were also elevated at the level of the underlying muscle. The size of the horizontal eyebrow flaps were 1 x 3 cm on either side of the squamous cell carcinoma wound. The size of the wound and the size of the flaps required to close the wound was 18 cm2 for the forehead flap component of the reconstruction and 9 cm2 for the eyebrow component of the reconstruction. Hemostasis obtained with electrocautery. I was able to advance the bilateral horizontal eyebrow flaps into the eyebrow portion of the defect. The flaps were approximated with 5-0 Monocryl interrupted sutures for the deep dermis and subcutaneous tissue. I was also able to advance the bilateral horizontal forehead flaps into the forehead portion of the defect. The flaps were advanced with minimal tension and minimal distortion. The flaps were approximated with 5-0 Monocryl interrupted sutures for the deep dermis and subcutaneous tissue. The skin was approximated with 6-0 Prolene simple interrupted sutures and vertical mattress interrupted sutures. As a result of the reconstruction, a slight brow lift was obtained. This should help to offset the risk of some brow ptosis that may occur secondary to scarring on the muscle and also secondary to excision of some of the muscle because of involvement with squamous cell carcinoma. At the end of the procedure, there was good contour noted on the forehead and eyebrow. No vascular compromise was noted on the skin flaps. Steristrips were applied to the incision portion not involved with the eyebrow hair. Antibiotic ointment was then applied. Patient tolerated the procedure well and was sent to PACU in satisfactory condition. He will be sent home on antibiotics and pain medication. He will keep his head elevated during the initial postop period. He will be on a lifting restriction. He will followup in the office in a week for a wound check as well as for discussion of the pathology report and for removal of the sutures. Grafts/Implants Used: None. - Complications None. - Admit VTE Documentation VTE Present on Admission: No VTE Mechan Device Prophylaxis: SCD's VTE Pharm Prophylaxis ordered?: No Code Visit Surgery Charges CPT - 28537 ICD-10 - C44.329, S01.80xA 74548-97 C44.329, S01.80xA
[2018-01-12 07:30] LABS: Bedside Glucose 89 mg/dL (70-110)
[2018-01-12 07:30] LABS: Bedside Glucose 87 mg/dL (70-110)
== END 2018-01-11 16:32 | disposition home or self-care (01) ==
LOC: SDC 12:34
PROVIDERS: Family Provider Family Medicine; PCP Family Medicine; Visit Provider Surgery
PROC: (CPT 15731; principal; 2018-01-11 13:45)
DX: L57.8 Other skin changes due to chronic exposure to nonionizing radiation (principal); L98.499 Non-pressure chronic ulcer of skin of other sites with unspecified severity; C44.329 Squamous cell carcinoma of skin of other parts of face; E11.9 Type 2 diabetes mellitus without complications; M10.9 Gout, unspecified; E78.5 Hyperlipidemia, unspecified; I10 Essential (primary) hypertension; Z79.84 Long term (current) use of oral hypoglycemic drugs; Z79.899 Other long term (current) drug therapy
CPT/HCPCS: 15731; 82962; 88305; J7120; J2405

== ENCOUNTER 2020-10-09 11:29 | Outpatient (RCR) | payer OTHER, SELFPAY ==
[2018-02-04 17:09] VITALS: BMI 34.5
[2020-10-09] MEDS: COVID-19 VACC, MRNA(PFIZER)/PF 30 MCG/0.3 ML SYRINGE IM (07:18)
[2020-10-30] MEDS: COVID-19 VACC, MRNA(PFIZER)/PF 30 MCG/0.3 ML SYRINGE IM (07:07)
== END 2021-01-08 23:59 ==
LOC: IMMUN 11:29
PROVIDERS: PCP Family Medicine; Visit Provider Family Medicine
DX: Z23 Encounter for immunization (principal)
CPT/HCPCS: 0001A; 0002A; 91300

== ENCOUNTER → 2022-07-22 | Outpatient (CLI) | payer MEDICARE, OTHER, SELFPAY ==
--- NOTE | 2022-07-22 09:07 | STRESSREP ---
Stress Test Report Date: 07-22-2022 Procedure: Exercise tolerance test/imaging study Indications: Chest pain; syncope; abnormal ECG Consent: Per the patient Procedure: The patient exercised on a Tyler protocol for 5 minutes completing Stage I and 2 minutes of Stage II achieving a peak heart rate of 150 bpm (98% predicted maximal heart rate) with resting blood pressure of 134/92 mmHg and a peak blood pressure 194/60 mmHg and a peak MET capacity of 7 METs. The baseline ECG demonstrated normal sinus rhythm. The peak exercise ECG demonstrated approximately 0.[address] segment depression in lead V4 through V6 with resolution towards baseline beginning less than 1 minute in recovery. There were occasional PVCs pretest, during exercise, and recovery and an isolated ventricular couplet in recovery. The functional capacity was considered fair. There was no complaint of chest discomfort during exercise or recovery. The examination was discontinued secondary to dyspnea. Impression: 1. Technically adequate (percent predicted maximal heart rate greater than 85%) exercise tolerance test 2. Peak exercise ECG with approximately 0.[address] segment depression in lead V4 through V6 with resolution towards baseline beginning less than 1 minute in recovery 3. There were occasional PVCs pretest, during exercise, and recovery and an isolated ventricular couplet in recovery 4. Nuclear images pending Myocardial perfusion imaging study: Technique: The patient was injected with 12.9 mCi of technetium 99m Cardiolite and subsequently rest SPECT Cardiolite nuclear imaging was obtained in the horizontal long, vertical long, and short axis views. The patient exercised on a Tyler protocol for 5 minutes completing Stage I and 2 minutes of Stage II achieving a peak heart rate of 150 bpm (98% predicted maximal heart rate) with resting blood pressure of 134/92 mmHg and a peak blood pressure 194/60 mmHg and a peak MET capacity of 7 METs. The patient was injected with 39.0 mCi of technetium 99m Cardiolite and subsequently stress SPECT Cardiolite nuclear imaging was obtained in the horizontal long, vertical long, and short axis views. A gated Cardiolite study at peak stress was obtained. Interpretation: Rest and stress SPECT Cardiolite nuclear imaging status post realignment, normalization, and attenuation correction, demonstrates on the short axis view a small area of subtle diminished tracer uptake in the basal interventricular septal area which appears to be somewhat more prominent following stress as opposed to rest. There is end systolic thickening and brightening. The gated Cardiolite study demonstrates myocardial thickening and inward wall motion. The reported LVEF is 77%. Impression: 1. Rest and stress SPECT Cardiolite nuclear imaging demonstrate a small area of subtle diminished tracer uptake in the basal interventricular septal area at rest which appears to be somewhat more prominent following stress in the short axis view which may be compatible with imaging through the basal portion of the interventricular septum and would be considered equivocal for an area of stress-induced myocardial ischemia especially noting that similar changes are not obvious in the horizontal longer vertical long axis views. 2. The gated Cardiolite study reports an LVEF of 77%. This note was generated with [employer] software. It may contain incorrect words, spelling, and punctuation that were not noted in checking the note before signing.
== END | disposition home or self-care (01) ==
LOC: CVS 06:03
PROVIDERS: PCP Family Medicine; Referring Provider Nurse Practitioner Family; Visit Provider Nurse Practitioner Family
DX: R55 Syncope and collapse (principal); R94.31 Abnormal electrocardiogram [ECG] [EKG]
CPT/HCPCS: 78452; 93017; A9500; A4216

== ENCOUNTER → 2022-08-22 | Outpatient (CLI) | payer MEDICARE, OTHER, SELFPAY ==
--- NOTE | 2022-08-22 14:00 | ECHOD_ITS ---
Procedure This was a 2D Doppler, Color Flow transthoracic echocardiogram. Exam performed in department. Left Ventricle Normal LV size. Mild concentric left ventricular hypertrophy. The left ventricular ejection fraction is 60 %. Diastolic function is indeterminate. Right Ventricle Normal right ventricle. Atria The left and right atria are normal. Bubble contrast study is negative for PFO/ASD. Mitral Valve The mitral valve is structurally normal. No prolapse or stenosis seen. Tricuspid Valve Normal tricuspid valve. Aortic Valve Trisinus/trileaflet aortic valve. Trivial aortic valve insufficiency. Pulmonic Valve The pulmonic valve is not well visualized. Great Vessels Normal sized aortic root. Pericardium/Pleural No pericardial effusion. MMode/2D Measurements & Calculations LVIDd: 4.3 cm IVSd: 1.2 cm Ao root diam: 3.5 cm LVIDs: 3.1 cm LVPWd: 1.1 cm RVDd: 2.9 cm FS: 28.6 % LAV(MOD-bp): 48.3 ml LVAd ap4: 23.2 cm2 LVAd ap2: 23.7 cm2 LAV(MOD-bp) Indexed: 24.3 ml/m2 LVLd ap4: 7.0 cm LVLd ap2: 7.9 cm LAV(MOD-sp2): 47.8 ml EDV(MOD-sp4): 65.0 ml EDV(MOD-sp2): 59.9 ml LAV(MOD-sp4): 46.2 ml EDV(sp4-el): 65.5 ml EDV(sp2-el): 60.6 ml LVAs ap4: 14.1 cm2 LVAs ap2: 14.9 cm2 LVLs ap4: 6.1 cm LVLs ap2: 7.4 cm ESV(MOD-sp4): 28.8 ml ESV(MOD-sp2): 26.4 ml ESV(sp4-el): 27.7 ml ESV(sp2-el): 25.2 ml EF(MOD-sp4): 55.6 % EF(MOD-sp2): 55.9 % EF(sp4-el): 57.7 % SV(MOD-sp4): 36.1 ml SV(MOD-sp2): 33.5 ml SV(sp4-el): 37.8 ml LA dimension(2D): 3.7 cm LA A4 area: 17.8 cm2 RA A4 area: 12.7 cm2 Time Measurements MV dec time: 0.25 sec Doppler Measurements & Calculations MV E max garrison: 33.3 cm/sec Lat Peak E' Garrison: 6.9 cm/sec Med Peak E' Garrison: 7.4 cm/sec MV A max garrison: 53.5 cm/sec E/E' lat: 4.8 E/E' med: 4.5 MV E/A: 0.62 MV dec slope: 135.8 cm/sec2 Ao V2 max: 95.8 cm/sec LV V1 max: 88.7 cm/sec Ao max P.7 mmHg LV V1 max P.2 mmHg Ao V2 mean: 68.9 cm/sec LV V1 mean P.7 mmHg Ao mean P.1 mmHg LV V1 mean: 61.6 cm/sec Ao V2 VTI: 20.4 cm LV V1 VTI: 18.3 cm AV (velocity ratio): 0.90 PA V2 max: 91.4 cm/sec ECHO/Echo Complete Interpretation Summary Mild concentric left ventricular hypertrophy. The left ventricular ejection fraction is 60 %. Diastolic function is indeterminate. Ordering Physician: Nasir Rosa Referring Physician: Montez Aggarwal Performed By: Patria Wagner, RDCS, RVT
== END | disposition home or self-care (01) ==
LOC: CVS 12:56
PROVIDERS: PCP Family Medicine; Referring Provider Internal Medicine Cardiovascular Disease; Visit Provider Internal Medicine Cardiovascular Disease
DX: R55 Syncope and collapse (principal)
CPT/HCPCS: 93306

== ENCOUNTER 2022-08-27 12:58 | Observation (INO) | payer MEDICARE, OTHER, SELFPAY ==
--- NOTE | 2022-08-22 13:12 | RAD_ITS ---
INDICATION: Pre-op exam -- for heart cath EXAMINATION/TECHNIQUE: X-RAY - XR Chest 2 Views COMPARISON: None. FINDINGS: The lungs are clear. Tortuous and calcified thoracic aorta. The heart is not enlarged. No pleural effusion or pneumothorax. Degenerative changes of the thoracic spine. RAD/Chest PA and Lateral IMPRESSION: No acute radiographic abnormalities. Electronically Signed: Dom Rod MD at 16:52 EST ,
[2022-08-22 13:42] LABS: Hematocrit 45.1 % (40-54); Hemoglobin 15.2 g/dL (13.0-16.5); Mean Corp Hgb Conc 33.7 g/dL (32-36); Mean Corpuscular Hgb 31.8 pg (27.0-32.0); Mean Corpuscular Volume 94.4 fL (80-94); Mean Platelet Vol. 11.1 fl (6.2-12.0); Platelet Count 158 K/mm3 (150-450); RBC Distribution Width CV 13.7 % (11.6-14.6); RBC Distribution Width SD 47.4 fl (35.1-43.9); Red Blood Count 4.78 M/mm3 (4.6-6.2); White Blood Count 7.5 K/mm3 (4.4-11.0)
[2022-08-22 13:49] LABS: International Normalized Ratio 1.1; Prothrombin Time (Protime)PT. 13.7 SECONDS (11.7-14.9)
[2022-08-22 13:58] LABS: Anion Gap 8 (5-15); BUN 15 mg/dL (7-18); Calcium,Total 9.4 mg/dL (8.5-10.1); Chloride 106 mmol/L (98-107); Creatinine, Serum 1.25 mg/dL (0.70-1.30); EST Glomerular Filtration Rate 61 mL/min (>60); Est Glom Filt Rate - Afr Amer 74 mL/min (>60); Glucose 203 mg/dL (74-106); Potassium 3.9 mmol/L (3.5-5.1); Sodium Level 141 mmol/L (136-145)
[2022-08-26 11:28] VITALS: BMI 31.9
--- NOTE | 2022-08-27 14:28 | CRPHASE1_ITS ---
Patient Communication Former Patient:: Phase I Guide to Cardiac Rehab Given to Patient:: Yes Cardiac Rehab Facility Choice List Given to Patient:: Yes Forensic Computer Examiner:: Nasir Rosa Cardiac Rehabilitation Info Cardiac Rehabilitation Program Information: Cardiac Rehab The cardiac rehab team at [facility] consists of highly skilled exercise physiologists, nurses, respiratory therapists and physicians working together with you. Our purpose is to help you have a full recovery and achieve the goals you set for yourself. Over the years many of our patients have returned to activities they assumed they would never do again! We can help restore your confidence and motivation to make lifestyle changes that can have a significant impact on your health and quality of life! We can help answer questions and concerns you may have about exercise, lifestyle, medications, diet, stress and anxiety which are common following a hospitalization. WE monitor ECG and vital signs during exercise and discuss your progress with you and report to your physician(s). Cardiac Rehab is proven to help reduce readmissions, improve functional capacity and lower recurrence of problems with your heart. Our Cardiac Rehab program is Certified by the [place] [employer]-Vascular and Pulmonary [employer] (AACVPR) and Accredited by the [place] [employer] through our [facility]. You can contact us at . We invite you to call us with your questions or to get started in our program. If you have other questions or concerns be sure to ask y our physician/provider during your follow-up visit. WE look forward to seeing you!
--- NOTE | 2022-08-27 14:29 | CRPH1.INSTRU ---
General Education CAD and cardiac anatomy and function:: Patient communicates acknowledgment Explanation of diagnoses and procedures:: Patient communicates acknowledgment Sign/Symptoms of SD:: Patient communicates acknowledgment Antiplatelet therapy: Patient communicates acknowledgment Proper use of NTG-SL: Patient communicates acknowledgment Emergency procedures and activation of EMS: Patient communicates acknowledgment Compliance of all prescribed medications: Patient communicates acknowledgment Smoking Patient Nicotine/Smoking Risk Factors Are:: Never smoked Nicotine/Smoking Response Code:: Patient communicates acknowledgment Dyslipidemia Recommendations Include:: Lipid profile not available Dyslipidemia Response Code:: Patient communicates acknowledgment Overweight/Obesity Patient Overweight/Obesity Risk Factors Are:: Obesity - > or = 30 Recommendations Include:: Weight loss of 5-10%, Reduced calorie diet, Exercise 5-7 times/week Overweight/Obesity:: Patient communicates acknowledgment Hypertension Recommendations Include:: Maintain BP <130/85 Hypertension:: Patient communicates acknowledgment Heart Disease Patient Heart Disease Risk Factors Are:: Family history of heart disease < 65 years old Recommendations Include:: Educated family members of their risk Heart Disease Response Code:: Patient communicates acknowledgment Diabetes Patient Diabetes Risk Factors Are:: Elevated blood sugars Recommendations Include:: Maintain fasting blood sugars 70-110 md/dL, Maintain HgbA1c of 6% or less, Monitor blood sugar as prescribed, Diabetic dietary guidelines, Decrease/maintain body weight Diabetes:: Patient communicates acknowledgment Metabolic Syndrome Patient Metabolic Syndrome Risk Factors Are [3 of 5]:: Hypertension Recommendations Include:: Does not meet criteria Sedentary Recommendations Include:: Benefits of regular exercise, Monitored Outpatient Cardiac Rehab Sedentary Response Code:: Patient communicates acknowledgment Stress Recommendations Include:: Identification of stressors, and assessment of coping skills, Stress management techniques Stress Response Code:: Patient communicates acknowledgment
[2022-08-27 15:46] LABS: ACT Activated Clotting Time 257 sec (74-137)
[2022-08-27 16:02] VITALS: BP 125/85; PULSE 81; RESP 16; TEMP 36.4; O2SAT 97
[2022-08-27] MEDS: 0.9% Normal Saline 1,000 ML 150 ML IV (16:33)
[2022-08-27 22:04] VITALS: BP 134/79; PULSE 79; RESP 18; TEMP 36.4; O2SAT 96
[2022-08-27 22:10] VITALS: O2SAT 96
[2022-08-27 22:13] VITALS: BP 134/79; PULSE 79
[2022-08-27] MEDS: Metoprolol Tartrate 25 MG Tablet PO (22:13)
[2022-08-27] MEDS: Atorvastatin Calcium 40 MG Tablet PO (22:13)
[2022-08-27] MEDS: Clopidogrel Bisulfate 300 MG Tablet PO (22:21)
[2022-08-27 23:21] LABS: Bedside Glucose 92 mg/dL (74-106)
[2022-08-28 04:07] VITALS: BP 114/70; PULSE 71; RESP 16; TEMP 36.4; O2SAT 94
[2022-08-28 05:30] LABS: Hematocrit 42.4 % (40-54); Hemoglobin 14.7 g/dL (13.0-16.5); Mean Corp Hgb Conc 34.7 g/dL (32-36); Mean Corpuscular Volume 92.4 fL (80-94); Mean Platelet Vol. 11.3 fl (6.2-12.0); Platelet Count 126 K/mm3 (150-450); RBC Distribution Width CV 13.7 % (11.6-14.6); RBC Distribution Width SD 46.5 fl (35.1-43.9); Red Blood Count 4.59 M/mm3 (4.6-6.2); White Blood Count 6.9 K/mm3 (4.4-11.0)
[2022-08-28 06:13] LABS: ALB/GLOB Ratio 0.9 RATIO (0.9-2.4); AST(SGOT) 89 U/L (15-37); Alanine Aminotransfer ALT/SGPT 80 U/L (16-61); Albumin, Serum 3.3 g/dL (3.2-5.0); Alkaline Phosphatase 97 U/L (45-117); Anion Gap 10 (5-15); BUN 21 mg/dL (7-18); BUN/Creat Ratio 18.9 RATIO (10-20); Calcium,Total 8.9 mg/dL (8.5-10.1); Chloride 108 mmol/L (98-107); Cholesterol 103 mg/dL (200); Creatinine, Serum 1.11 mg/dL (0.70-1.30); EST Glomerular Filtration Rate 70 mL/min (>60); Est Glom Filt Rate - Afr Amer 85 mL/min (>60); Estimated Creatinine Clearance 57.48 ml/min; Globulin 3.8 g/dL (2.2-4.2); Glucose 91 mg/dL (74-106); High Density Lipoprotein 33 mg/dL; Potassium 3.6 mmol/L (3.5-5.1); Protein, Total 7.1 g/dL (6.4-8.2); Sodium Level 139 mmol/L (136-145); Triglycerides 171 mg/dL; Very Low Density Lipoprotein 34 mg/dL (5-40)
[2022-08-28 07:30] LABS: Bedside Glucose 95 mg/dL (74-106)
[2022-08-28 08:00] VITALS: O2SAT 97
[2022-08-28 09:50] VITALS: BP 123/86; PULSE 80; RESP 18; TEMP 36.4; O2SAT 97
[2022-08-28 09:54] VITALS: BP 123/86; PULSE 80
[2022-08-28] MEDS: Clopidogrel Bisulfate 75 MG Tablet PO (09:54)
[2022-08-28] MEDS: Metoprolol Tartrate 25 MG Tablet PO (09:54)
[2022-08-28] MEDS: Glimepiride 2 MG Tablet PO (09:54)
[2022-08-28] MEDS: Famotidine 20 MG Tablet PO (09:55)
[2022-08-28] MEDS: Aspirin E.C. 81 MG Tablet PO (09:55)
[2022-08-28] MEDS: Colchicine 0.6 MG TABLET 1.2 MG PO (09:55)
--- NOTE | 2022-08-28 11:40 | DCINST_ITS ---
Discharge Instructions Diet Discharge Diet: Low fat / Low cholesterol Activity Discharge Activity: May Shower Dressing / Incision Call your doctor if your incision/area has: Continuous Slow Oozing, Sudden Increased Bleeding, Increased Pain/ Swelling, Increased Redness, Foul Smelling Discharge and Swelling at the incision site Call your doctor if you observe: Coldness, Increased Pain, Numbness or Tingling, Shortness of breath and Chest pain Cleanse incision/area with: Soap & Water Follow Up Care Please Follow Up With: Nasir Rosa MD When: 09/24/2022 at 1:30 PM Test Results: Test results from this visit will be discussed in further detail at your follow- up appointment, if applicable. Discharge Plan Admission Admit Date/Time: 08/27/22 12:58 Attending Provider: Nasir Rosa Primary Care Provider: Montez Aggarwal Instructions Additional Instructions / Restrictions: Please continue with Aspirin and Plavix together for 1 year. If another provider asked you to stop your Plavix, please call the [facility] Office at [phone] prior to discontinuing. Cardiac rehab will contact you to begin cardiac rehab. You have a follow-up appointment with Dr. Rosa on 09/24/2022 at 1:30 PM. If he have any questions of concern, please call the [facility] Office at [phone]. Discharge Orders/Prescriptions Prescriptions: No Action colchicine 0.6 mg tablet 1.2 mg PO DAILY glimepiride [Amaryl] 2 mg tablet 2 mg PO QAM atenolol 25 mg tablet 25 mg PO DAILY atorvastatin [Lipitor] 80 mg tablet 40 mg PO QHS metformin 500 mg tablet extended release 24hr 1,000 mg PO BID famotidine [Pepcid AC] 20 mg tablet 20 mg PO DAILY aspirin [Adult Aspirin Regimen] 81 mg tablet,delayed release (DR/EC) 81 mg PO DAILY Qty: 90 3RF Referrals / Follow Up: Montez Aggarwal MD [Primary Care Provider] - Trevor Deal NP, INSURANCE COORDINATOR-C [Med Staff - [facility]] - Disposition Disposition (needs filled in before D/C Order can be placed): Home, Self Care
--- NOTE | 2022-08-28 12:26 | PCM.PN.CARD ---
Subjective Subjective Patient seen prior to discharge. Right radial pulse 2+. She acknowledges some discomfort and has been utilizing Tylenol to assist. She is instructed continue with Tylenol as needed as well as warm compress. She denies any chest pain or shortness of breath. Her telemetry does not reveal any sustained ventricular tachycardia. We will continue to monitor hemoglobin and creatinine as needed. Objective Data Vital Signs: Vital Signs Temp Pulse Resp BP Pulse Ox O2 Del Method 97.6 F L 80 18 123/86 H 97 Room Air 08/28/22 09:50 08/28/22 09:54 08/28/22 09:50 08/28/22 09:54 08/28/22 09:50 08/28/22 09:50 Oxygen Delivery Method Room Air Weight: 198 lb Body Mass Index (BMI) 31.9 Intake & Output: Intake and Output for Last 24 Hours 08/26/22 08/27/22 08/28/22 23:59 23:59 23:59 Intake Total 1367.5 / 1567.5 200 / 200 Balance 1367.5 / 1567.5 200 / 200 Lab / Micro Data Result Diagrams: 08/28/22 04:37 08/28/22 04:37 Labs: Laboratory Results - last 24 hr 08/27/22 13:00: Activated Clotting Time 257 H 08/27/22 22:11: POC Glucose 92 08/28/22 04:37: WBC 6.9, RBC 4.59 L, Hgb 14.7, Hct 42.4, MCV 92.4, MCH 32.0, MCHC 34.7, RDW Std Deviation 46.5 H, RDW Coeff of Amadeo 13.7, Plt Count 126 L, MPV 11.3 08/28/22 04:37: Sodium 139, Potassium 3.6, Chloride 108 H, Carbon Dioxide 21.0, Anion Gap 10, BUN 21 H, Creatinine 1.11, Estim Creat Clear Calc 57.48, Est GFR (MDRD) Af Amer 85, Est GFR (MDRD) Non-Af 70, BUN/Creatinine Ratio 18.9, Glucose 91, Calcium 8.9, Total Bilirubin 0.90, AST 89 H, ALT 80 H, Alkaline Phosphatase 97, Total Protein 7.1, Albumin 3.3, Globulin 3.8, Albumin/Globulin Ratio 0.9, Triglycerides 171, Cholesterol 103, LDL Cholesterol 36, VLDL Cholesterol 34, HDL Cholesterol 33 L 08/28/22 07:09: POC Glucose 95 Cardiology Labs/Tests 08/28/22 04:37: WBC 6.9, RBC 4.59 L, Hgb 14.7, Hct 42.4, MCV 92.4, MCH 32.0, MCHC 34.7, Plt Count 126 L, MPV 11.3 08/28/22 04:37: Sodium 139, Potassium 3.6, Chloride 108 H, Carbon Dioxide 21.0, Anion Gap 10, BUN 21 H, Creatinine 1.11, Est GFR (MDRD) Af Amer 85, Est GFR (MDRD) Non-Af 70, BUN/Creatinine Ratio 18.9, Glucose 91, Calcium 8.9, Total Bilirubin 0.90, Triglycerides 171, Cholesterol 103, LDL Cholesterol 36, VLDL Cholesterol 34, HDL Cholesterol 33 L Rhythm: EKG: ECHO: Stress Test: Cardiac Cath: PCI: CT Surgery: Holter monitor: EPS: PPM: CXR: Chest CT Scan:
[2022-08-28 12:31] VITALS: BP 123/86; PULSE 80; RESP 18; TEMP 36.4; O2SAT 97
--- NOTE | 2022-08-28 13:09 | PHA.DC.MR ---
Pharmacy Service has performed discharge medication reconciliation for this patient. No new medications at time of discharge medication list review. Medications reviewed are from previously reported home medications. Home Medications atenolol 25 mg tablet 25 mg PO DAILY blood pressure 10/21/17 colchicine 0.6 mg tablet 1.2 mg PO DAILY gout 10/21/17 glimepiride 2 mg tablet (Amaryl) 2 mg PO QAM diabetes 10/21/17 aspirin 81 mg tablet,delayed release (Adult Aspirin Regimen) 81 mg PO DAILY #90 tabs 08/19/22 atorvastatin 80 mg tablet (Lipitor) 40 mg PO QHS cholesterol 08/19/22 famotidine 20 mg tablet (Pepcid AC) 20 mg PO DAILY reflux 08/19/22 metformin 500 mg tablet,extended release 24hr 1,000 mg PO BID diabetes 08/19/22 The patient's discharge medication list was reviewed for discrepancies and discrepancies were resolved.
--- NOTE | 2022-08-28 13:49 | CL.I_ITS ---
Patient Name: SATINDER WALTER Study Date: 08/27/2022 Performing: Nasir Rosa MD Ht: 66 inches 167.64 cm : 1955 Wt: 198 lbs 89.81 kg Age: 66 Gender: male BSA: 1.99 PROCEDURE(S) PERFORMED DC02-(39533)LHC/COR IC12-(10351/C9600)JULIANN W/WO PTCA, SINGLE CORONARY ARTERY CLINICAL PROFILE AND CO-MORBIDITIES Heart Failure: None Stress/Imaging Stress Test w/SPECT MPI: Yes Result: Positive Intermediate Risk Stress Test with SPECT MPI: Positive Intermediate Risk CAD Presentations: No Sxs, no angina. CONCLUSIONS Calcific CAD 90% Mid LCX; 50% Lat OM1 50% Mid LAD Ectatic RCA Successful PTCA/JULIANN Mid LCX using Resolute [place] 2.5x8 mm RECOMMENDATIONS ASA Indefinitley Plavix for at least 12 months DESCRIPTION OF PROCEDURE The patient arrived to the procedure lab. The risks and benefits of the procedure as well as a full description of our services here and lack of surgical backup were fully explained to the patient and/or their significant other prior to the catheterization. The Timeout was completed, verifying the correct patient and procedure. The patient's procedural site was prepped and draped in the usual fashion. Local anesthetic was given subcutaneously to right radial region with Lidocaine 2%. Using a modified Seldinger technique, arterial access was obtained via the right radial artery, a 6Fr sheath was inserted.. Right Coronary Artery selective angiography was then performed in multiple views using a 5 Fr. 4.0 [place] catheter. Left Coronary Artery selective angiography was performed in multiple views using a 5 Fr. 4.0 [place] catheterThe images were reviewed and options discussed. A decision was then made to proceed with an Intervention, IVUS or other adjunct procedure. XB 3.0 Guide catheter was inserted and engaged into the LCA. Runthrough Guide wire was advanced to the Circumflex. Emerge 2.0 x 8 Balloon catheter was inserted. Balloon catheter was advanced across lesion in the circumflex, proximal. Angiogram performed pre balloon dilatation. PTCA balloon inflated at 8 atms for 10 secs. PTCA balloon inflated at 6 atms for 2 secs. PTCA balloon inflated at 6 atms for 9 secs. Angiogram performed post balloon dilatation. PTCA balloon inflated at 8 atms for 10 secs. PTCA balloon inflated at 10 atms for 7 secs. Resolute [place] 2.5 x 8 Drug Eluting stent was inserted. Drug Eluting stent was advanced across the lesion in the circumflex, proximal. Angiogram performed pre stent deployment. Angiogram performed post stent deployment. NC Emerge 2.5 x 8 Balloon catheter was inserted. Balloon catheter was advanced across lesion in the circumflex, proximal. Angiogram performed pre balloon dilatation. The arterial sheath was pulled and a TR Band was applied for hemostasis CORONARY ANGIOGRAPHY DOMINANCE: Right Dominant LEFT MAIN: 10% LEFT ANTERIOR DESCENDING ARTERY: LAD: Calcified 20% Proximal lesion in LAD Tubular 50% Mid lesion in LAD CIRCUMFLEX ARTERY: CIRCUMFLEX: Calcified 50% Ostial lesion in Circumflex Tubular 90% Mid lesion in Circumflex RIGHT CORONARY ARTERY: RCA: Ectasia 50% Ostial lesion in RCA INTERVENTION INFORMATION LESION SITE: Circumflex (Proximal) Lesion Complexity: Non-High/Non-C, lesion length: 6 mm Pre Stenosis: 90 % Pre intervention JEREMIAH flow: 3 PROCEDURE: Drug Eluting Stent with pre and post dilatation Post Stenosis: 0 % Post intervention JEREMIAH flow: 3 Lesion Devices: Terumo .014 180cm Runthrough Extra Floppy straight Cordis 6 Fr XB3.0 100cm Guide Catheter Sushant Sci EMERGE MR 2.00x08 BALLOON Medtronic Resolute [place] RX JULIANN 2.5x08 Sushant Sci NC EMERGE MR 2.50x08 BALLOON COMPLICATIONS No Complications PROCEDURE MEDICATIONS Versed 2 mg IV Fentanyl 50 mcg IV Oxygen: 2 L/min via nasal cannula Brilinta 180 mg PO @ 08/27/2022 12:34:58 Heparin given IA 08/27/2022 12:24:15 Heparin 6000 unit(s) IV 08/27/2022 12:35:08 Nitro 200 mcg IC 08/27/2022 12:46:39 Verapamil 2.5mg, Ntg 200mcgs, 2000 units of Heparin given IA 08/27/2022 12:24:15 IV Bolus: .9 NaCl 250 ml total 08/27/2022 12:25:42 SUMMARY OF HEMODYNAMIC DATA Time AIR REST ECG 08:10:42 ECG 11:59:02 AO 95/62 (78) SA 12:26:14 NODUCER AO / () 13:06:42 AIR REST 13:09:17 Signed By Nasir Rosa MD On 08/27/2022 14:12:29 Signed By Nasir Rosa MD On 08/27/2022 13:14:19 Nasir Rosa MD
--- NOTE | 2022-08-28 14:53 | NURSING ---
Primary RN Aravind walked into patient room to complete discharge and the patient had left, room was empty. This RN called the patient at his home number, listed in the chart, and the patient stated 2.5 hours after the doctor said I would be discharged, I thought that was long enough. I explained to the patient on the phone that we apologize for the wait but staff must wait on actual discharge orders and plan for discharge from the provider. The discharge paper work was printed out at [id number]. I asked the patient if he would like the information sent via mail or picked up from the hospital. Patient requested that his discharge paperwork be sent via mail to his home address.
== END 2022-08-28 15:03 | disposition home or self-care (01) ==
LOC: PCU 15:56
PROVIDERS: Admitting Provider Internal Medicine Cardiovascular Disease; PCP Family Medicine; Referring Provider Internal Medicine Cardiovascular Disease; Visit Provider Internal Medicine Cardiovascular Disease
DX: R55 Syncope and collapse (principal); E11.22 Type 2 diabetes mellitus with diabetic chronic kidney disease; N18.30 Chronic kidney disease, stage 3 unspecified; R94.39 Abnormal result of other cardiovascular function study; Z79.899 Other long term (current) drug therapy; Z79.84 Long term (current) use of oral hypoglycemic drugs; Z79.82 Long term (current) use of aspirin; I12.9 Hypertensive chronic kidney disease with stage 1 through stage 4 chronic kidney disease, or unspecified chronic kidney disease; E78.5 Hyperlipidemia, unspecified; E66.9 Obesity, unspecified; Z68.31 Body mass index [BMI] 31.0-31.9, adult; I25.10 Atherosclerotic heart disease of native coronary artery without angina pectoris
CPT/HCPCS: 36415; 71046; 80048; 80053; 80061; 82962; 85027; 85347; 85610; 85730; 92928; 93005; 93454; 96360; 96361; 99152; 99153; 99221; J7030; J7040; Q9967; C1725; C1769; C1874; C1887; C1894; C9600; G0378

== ENCOUNTER → 2022-09-10 | Outpatient (CLI) | payer MEDICARE, OTHER, SELFPAY ==
--- NOTE | 2022-09-10 12:52 | PCM.CR.HP2 ---
CR - History & Physical - General Arrival date:: 09/10/22 Arrival time:: 12:52 Date of Referral:: 08/29/22 Date of CR Evaluation:: 09/10/22 Referring Physician: Dr. Rosa Primary Diagnosis: PCI with coronary stent - History of Present Cardiac Event Onset Date: Enter Onset Date of cardiac illnesses in Comment field below PTCA or coronary stenting:: Yes - Sleep Disorder Evaluation Hx of Sleep Apnea: No Do you snore loudly (louder than talking or can be heard through closed doors)?: No Do you often feel tired/ fatigued/ sleepy during daytime?: No Has anyone observed you stop breathing during sleep?: No History of Hypertension (for STOP score): Yes STOP Results: Negative - Medications Home Medications: Ambulatory Orders Medication Instructions Recorded atenolol 25 mg tablet 25 mg PO DAILY blood pressure 10/21/17 colchicine 0.6 mg tablet 1.2 mg PO DAILY gout 10/21/17 glimepiride 2 mg tablet (Amaryl) 2 mg PO QAM diabetes 10/21/17 aspirin 81 mg tablet,delayed 81 mg PO DAILY #90 tabs 08/19/22 release (Adult Aspirin Regimen) atorvastatin 80 mg tablet (Lipitor) 40 mg PO QHS cholesterol 08/19/22 famotidine 20 mg tablet (Pepcid AC) 20 mg PO DAILY reflux 08/19/22 metformin 500 mg tablet,extended 1,000 mg PO BID diabetes 08/19/22 release 24hr clopidogrel 75 mg tablet (Plavix) 75 mg PO QDAY #90 tabs 08/28/22 - Allergies Allergies/Adverse Reactions: Allergies acetaminophen [From Tylenol-Codeine] Allergy (Mild, Verified 08/19/22 08:36) NEEDS FOLLOW-UP amoxicillin [From Augmentin] Allergy (Mild, Verified 08/19/22 08:36) Itching clavulanic acid [From Augmentin] Allergy (Mild, Verified 08/19/22 08:36) Itching codeine [From Tylenol-Codeine] Allergy (Mild, Verified 08/19/22 08:36) NEEDS FOLLOW-UP Advanced Directives - Advanced Directives Power of Qualitative Field Coordinator: Yes Living Will: Yes Advance Directives Information Provided: Yes Advance Directives on File: No DNR Order?:: No Past Medical History - Covid-19 Screening 65 years or older:: Yes Has a serious heart condition:: Yes Diabetic:: Yes Has chronic kidney disease undergoing dialysis:: Yes - Past Medical Illness Medical History: Past Medical History (Last Updated 08/29/22 @ 08:40 by Edwige Fermin) Abnormal stress test R94.39 Atherosclerosis of coronary artery of [place] heart without angina pectoris I25.10 CKD (chronic kidney disease) stage 3, GFR 30-59 ml/min N18.30 Diabetes E11.9 Diverticulosis of colon (without mention of hemorrhage) K57.30 Elevated PSA R97.20 Essential (primary) hypertension I10 Gout M10.9 Headache R51.9 Hyperlipidemia E78.5 Obesity E66.9 Open wound of forehead without complication S01.80XA 3.7 cm open squamous cell carcinoma wound left lateral forehead by the eyebrow Pain in joint of right shoulder M25.511 Skin lesion of face L98.9 Snoring R06.83 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, 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 Syncope R55 Unsteadiness on feet R26.81 - Past Surgical History Surgical History: Past Surgical History (Last Updated 08/29/22 @ 08:40 by Edwige Fermin) H/O colonoscopy Onset Date: ~2018 Z98.890 2016 History of coronary artery stent placement Onset Date: ~08/27/22 Z95.5 PTCA/JULIANN Mid LCX-Resolute [place] 2.5x8mm skin lesion removal with skin graft on head - Family History Summary Family History: Family History (Last Reviewed 08/26/22 @ 11:29 by Mayi Moore) Mother Colon cancer Hypertension Father CAD (coronary artery disease) late in life Cancer bladder Brother Colon polyps Social History - Smoking History Smoking Status: Never smoker Hx Tobacco Use: No Hx Smoking Exposure: No - Alcohol Use Alcohol Usage: No - Substance Abuse Hx Substance Use: No - Occupation Occupation (List type of work in comments):: Retired - Hobbies, Recreation, Social Activities Recreational Activities: I am able to engage in all my recreational activities Social Environment - Status Marital Status: - Current Living Arrangements Living Environment:: Alone - Children How many children do you have?: 1 Do any of your children live nearby?: No - Safety Do you feel safe in your surroundings?: Yes - Assistance Do you need any assistance at home?: no Review of Systems - Review of Systems Hints: Right click = Denies ([place]ash). Left click = Reports ([place]) Review of Present Symptoms: Reports: Dizziness/Lightheadedness, Appetite - Normal, Sleep - Normal. Denies: Shortness of Breath at Rest, Shortness of Breath with Exertion, PVD, Operative Discomfort, Angina, Wound Healing, Fatigue, Heart Arrhythmia/Irregularities, Appetite - Special Diet, Sexual Changes - Pain Is Patient Pain Free?: Yes Risk Factor Assessment - Vital Signs Pulse Ox: 95 - Pulse Pulse Rate: 90 Pulse Rhythm: Regular - Hypertension Blood Pressure Sitting - Left Arm: 130/78 - Diabetes Diabetic History: Type II Nutrition Referral for Diabetes: No - Obesity Height: 5 ft 6 in Weight:: 89.811 kg Weight in Pounds: 198.0 lbs Body Mass Index (BMI): 31.9 Nutritional Referral for Obesity: No - Physical Inactivity Physical Inactivity: Reg Exercise 30 min/day - Risk Stratification Risk Guidelines: Lowest Risk: Risk Factor for Smoking, Moderate Risk: Risk Factor for Dyslipidemia, Risk Factor for Diabetes, Risk Factor for Obesity, Risk Factor for Hypertension, Risk Factor for Sedentary Lifestyle, Risk Factor for Depression - Family History Family History: Family History (Last Reviewed 08/26/22 @ 11:29 by Mayi Moore) Mother Colon cancer Hypertension Father CAD (coronary artery disease) Cancer Brother Colon polyps Motivation - Motivation to Participate On a scale of 1 to 10, how prepared are you to commit to attending program?: 10 What do you see as barriers to successfully being able to complete the program?: nothing What do you see as the benefits of succesfully completing the program? In other words, what do you hope to get out of participating in the program?: better strength Are there issues you are dealing with that will interfere with completing the program?: no Do you have a spouse or signficant other, family or friends who will help support you to complete the program?: yes
[2022-09-10 13:42] VITALS: BP 130/78; PULSE 90; O2SAT 95; BMI 31.9
--- NOTE | 2022-09-10 13:42 | PCM.CR.ITP ---
Diagnosis - General Information Admitting Diagnosis: PCI with coronary stent Personal Learning Style:: Audio/Visual, Demonstration, Group, Individual Preference, Written Stage of change r/t lifestyle modifications:: Contemplation Gave educational material for:: Treating Heart Disease, Emotions & Heart Disease, Stress Management & Relaxation, Sleep Disorders & Heart Disease, How The Heart Works, What it means to have Heart Disease, How Coronary Artery Disease is Diagnosed, Heart Procedures, What Heart Medications Do, Risk Factors & Modifications, Living an Active Life, Nutrition - Education/Goals Cardiac Rehabilitation Goals: 1. Maintain the individual as the primary focus of care. 2. To improve the patient's quality of life. 3. Identification of cardiac risk factors and provide cardiac risk factor management. 4. Enhance the psychosocial status of the patient. 5. Reconditioning enough to allow the patient to resume customary activities. 6. Control symptoms of cardiac disease Personal Goals: Initial Assessment: Participate in home exercise program, Improve knowledge of cardiac disease, Control risk factors (learn risk factor modification) Scale for measuring improvement of personal goals: Enter appropriate number in Comments. 2 = Unchanged. 3 = Slightly Better. 4 = Moderate Improvement. 5 = Met my Goal - Diagnosis & Disease Process Outcomes/Goals: Pt IDs own risk factors & lifestyle modifications by Session 10, Verbalizes symptoms of angina & response by session 3., Pt independently manages, Other Additional Outcomes/Goals: Plan/Interventions: Assist Pt to ID & engage in lifestyle modification to reduce CVD risk, Instruct on individual risk factors, Review symptoms of angina & emergency actions, Review secondary diagnosis & identify educational needs., Other see comment 30 day Reassessments:: Not Met 30 day Reassessments:: Not Met 30 day Reassessments:: Not Met 30 day Reassessments:: Not Met Final Reassessments:: Not Met - Safety Referral to Physical Therapy: No Referral to [facility] Case Management: No Fall Risk Assessed:: Yes Assistive Devices:: None Exercise - Initial Assessment - Visit Date of Eval: 09/10/22 - initial eval Mets: Pre-: >3 METS for 30 minutes by discharge, >5 METS for 30 minutes by discharge, >7 METS for 30 minutes by discharge, Unable to meet goal due to: (see comment below) - Physician Prescribed Exercise Modalities: Treadmill, Rower, Airdyne, NuStep, SciFit, Lateral [place] Frequency: 2x/week for 18 weeks [36 sessions], 3x/week for 12 weeks [36 sessions] Intensity: 60-80% of age predicted maximum heart rate reserve Current METSs:: 3 Target Heart Rate:: 98-113 Resting Blood Pressure: 130/78 EKG Type: SR with PVC's - Outcomes & Goals Goals:: Verbalizes understanding of THR, RPE & goal METS by session 6, Documents in home exercise log/reports 30 min aerobic 5 day/wk by DC, Demonstrates accurate pulse taking by DC, Other additional outcome/goals: see below - Intervention & Plan Exercise Program Goals: Instruct on personal THR & RPE, Instruct on MET level & personal MET goal, Show patient to take own pulse /validate performance until accurate, Instruct on home exercise, Other additional plan/int - Physical Activity Home Exercise Physical Activity - Home Exercise: Safe Exercise, Warm-up, Self-monitoring, Cool-Down, Home Exercise > 30 min Daily, Sitting Time <3 hours/daily - Outcomes & Goals Outcomes/Goals: Demonstrates correct Warm-up/exercise Cool-Down (S3) if = 2.5 METs, Verbalizes symptoms of exercise intolerance by Session 3 (S3), Demonstrate safe equipment use (S3) & follows exercise prescrition (6), Other: See below - Intervention & Plan Plan/Intervention: Instruct warm-up & cool-down if exercising at > 2 METs, Instruct on symptoms of exercise intolerance & actions to take, Instruct & monitor on saf, Assess intial functional capacity & safety risk, Other See below Nutrition - Initial Assessment - Program Goals Nutrition Program Goals: LDL <100 optimal. 100 - 129 Near optimal. 130 - 159 Borderline High. 160 - 189 High. Total Cholesterol <200 desirable. 200 - 239 Borderline High. >/= 240 High. HDL < 40 Low >/=60 High. Triglycerides <150 desirable. <199 optimal. VlDL 5 - 40. HgbA1C <7%. BMI <25 Patient has diagnosis of Hyperlipidemia (ICD E78)?: Yes - Visit Date of Assessment:: 09/10/22 - initial eval - Cholesterol/Lipids (Other Core Measures) Determine presence & major risk factors that modify LDL goal: Hypertension or hypertensive medication, Low HDL cholesterol <40 mg/dL*, Family history of premature CHD in Male < 55 years: female <65 yearsFa, Age men > 45 years; women >/= 55 years Outcomes/Goals: Pt IDs own risk factors & lifestyle modifications by Session 10, Verbalizes symptoms of angina & response by session 3., Pt independently manages, Other Additional Outcomes/Goals: Intervention/Plan: Advocate for lipid panel cholesterol medication if applicable, Instruct on personal lipid levels & lipid goals/NCEP guidelines, Instruct on cholesterol, Other additional plan/int Referral to dietitian:: No - declines - Diabetes (Other Core Measures) Diabetes Type: 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 E11 Non-Insulin Dependent?: Yes Do you monitor your blood sugar at home?: Yes - occassionaly Referral to Diabetic Clinic:: No - declines Outcomes/Goals:: Able to state symptoms of, Able to state, Able to state, Other additional Intervention/Plan:: Instruct on, Refer to, Instruct on, Other - Weight Mgt (Other Care) Height: 5 ft 6 in Weight:: 89.811 kg BMI: 31.9 Diagnosis Overweight/Obesity BMI> 30% ICD-10 E66: Yes Outcomes/Goals: Pt sets, maintains & shows weight loss goal & trend during rehab, Other additional outcomes/goals Intervention/Plan: Instruct on ideal BMI & set weight loss goal w/patient, Assist pt to ID & incorporate diet changes for weight loss by S9, Refer to Structured Weight Loss program as appropriate, Encourage goal of using 250-300dcal per session for weight loss, Other additional plan/interventions - Healthy Eating Habits Will attend diet classes:: Yes Outcomes/Goals:: Consume diet rich in vegs,fruits,whole grain/high fiber,fish,lean meat, Limit sat/trans fats,cholesterol & added salts & sugars, Other additional outcome/goals: Intervention/Plan:: Assess current eating habits, Other Additional plan/interventions - Education Gave educational materials for:: Signs & symptoms of hypoglycemia, Signs & symptoms of hyperglycemia, Relate diabetes to coronary artery disease, Healthy eating Nutrition - 30-Day Assessment Nutrition - 60-Day Assessment Nutrition - 90-Day Assessment Nutrition - Final Assessment Core - Initial Assessment - Visit Date of Eval: 09/10/22 - initial eval - Medication Compliance Preventative Medication(s):: Aspirin, Statin/lipid, Beta saida H/O mental health issues: depression, anxiety, or addiction?: No Doesn?t believe in the benefits of treatment?: No Believes medications are unnecessary or harmful?: No Has a concern about medication side effects?: No Expresses concern over the cost of medications?: No Outcomes/Goals: Verbalizes medications,desired effect & common side effects @ DC, Pt self-reports following medication regimen, Keeps card in wallet w/medications listed by DC, Other additional outcome/goals: Interventions/plans: Instruct on medication effects & side effects, Review medication list w/patient every two weeks, Instruct importance of taking meds as ordered & assist problem solving, Other additional - Tobacco Use Tobacco Use: Non-smoker Do you use smokeless tobacco?: No - Hypertension Hypertension Diagnosis:: Hypertension ICD-10 I10 Resting Blood Pressure:: 130/78 [place] [employer] Hypertension Guidelines: [place] [employer] Hypertension Guidelines. Normal BP Less than 120/80. Elevated BP 120/80. Hypertension Stage 1: BP 130-139/80-89. Hypertesnion Stage 2: BP 140 or higher/90 or higher. Hypertension Crisis: BP higher than 180/120 Outcomes/Goals: Able to verbalize/achieve optimal blood pressure <130/80, Incorporates diet changes & exercise for blood pressure control by DC, Other additional outcomes/goals Interventions/plan: Instruct on optimal blood pressure, hypertension & medications, Instruct on effects of sodium, alcohol, stress, exercise &hypertension, Other additional plan/interventions - Tobacco Cessation Referral Smoking Cessation Referral:: No Individual Education/Counseling:: No Education Schedule Given:: Yes Core - 30-Day Assessment Core - 60-Day Assessment Core - 90 Day Assessment Core - Final Assessment Psychosocial - Initial Assess - VIsit Date of Eval: 09/10/22 - initial eval History of previous Mental disease:: No Psychosocial - 30-Day Assess Psychosocial - 60-Day Assess Psychosocial - 90-Day Assess Psychosocial - Final Assessmen Patient Health Questionnaire Initial Assessment 1. Little interest or pleasure in doing things: Not at all 2. Feeling down, depressed, or hopeless: Not at all 3. Trouble falling or staying asleep, or sleeping too much: Not at all 4. Feeling tired or having little energy: Not at all 5. Poor appetite or overeating: Not at all 6. Feeling bad about yourself -- or that you are a failure or have let yourself or your family down: Not at all 7. Trouble concentrating on things, such as reading the newspaper or watching television: Not at all 8. Moving or speaking so slowly that other people could have noticed. Or the opposite - being so fidgety or restless that you have been moving around a lot more than usual: Not at all 9. Thoughts that you would be better off , or of hurting yourself in some way: Not at all How difficult have these problems made it for you to do your work, take care of things at home, or get along with other people?: Not difficult at all Total Score: 0 JESSICA-Q SV Test - Statements CAD is a disease of the arteries in the heart: False Examples of risk factors for heart disease: True Angina is chest pain or discomfort: I Don't Know The benefits of resistance training include: True Eating more meat and dairy products: False Anti-platelet medications such as aspirin are important: True The only effective way to manage stress: I Don't Know An exercise warm-up slowly increases heart rate: True Prepared, processed foods usually have high sodium: True Depression is common after a heart attack: I Don't Know The statin medications lower cholesterol: True To control blood pressure, lower the amount of sodium: True If someone gets chest discomfort during walking: False Transfats are partially hydrogenated vegetable oils: True Sleep apnea that is not treated increases the risk: I Don't Know To control cholesterol, one should become a vegetarian: False Someone knows if he/she is exercising at the right level: True Diabetes cannot be prevented with exercise & health eating: False Stress is a large risk for heart attack: True A diet that can help lower blood pressure is rich in: True - Total Score Total Correct Responses: 16 Self-Efficacy Initial Assessment We would like to know how confident you are in doing certain activities. Please select your confidence level for:: Select your confidence level for the following using the scale 1-10 where 1 is not at all confident and 10 is totally confident. Your score is the average of all 6 responses. Fatigue: How confident are you that you can keep the fatigue caused by your disease from interfering with the things you want to do? Select Number: 8 Physical Discomfort or Pain: How confident are you that you can keep the physical discomfort or pain of your disease from interfering with the things you want to do? Select Number: 8 Emotional Distress: How confident are you that you can keep the emotional distress caused by your disease from interfering with the things you want to do? Select Number: 8 Other Symptoms or Health Problems: How confident are you that you can keep other symptoms or health problems from interfering with the things you want to do? Select Number: 7 Different Tasks and Activities: How confident are you that you can do the different tasks and activities needed to manage your health condition so as to reduce your need to see a doctor? Select Number: 9 Medication: How confident are you that you can do things other than just taking medication to reduce how much your illness affects your everyday life? Select Number: 9 Total Score:: 8 Nutrition Survey - Nutrition Survey Initial Have you lost >10 lbs over the past 2 months without trying?: Yes Are you following a special diet at home for diabetes, low fat, or low salt?: Yes Are you interested in meeting with a dietitian for help understanding your diet?: Yes Do you eat less than 3 meals a day?: Yes Do you eat fatty meats (gomez, sausage, ribs, etc), fried foods, desserts, large amounts of salad dressings, margarine, butter, or cheese most days?: Yes Do you have food allergies? [Enter types in comment field]: No Do you eat in restaurants more than 3 times a week?: No Do you season food with salt, seasoning salt, or garlic salt?: No Do you used canned, boxed, frozen meals, or soups, seasoning packets?: No Total Score:: 5
[2022-09-10 14:03] VITALS: BP 130/78; BMI 31.9
== END | disposition home or self-care (01) ==
LOC: CR 12:42
PROVIDERS: PCP Family Medicine; Visit Provider Internal Medicine Cardiovascular Disease
DX: Z95.5 Presence of coronary angioplasty implant and graft (principal)

== ENCOUNTER → 2022-09-24 | Outpatient (CLI) | payer MEDICARE, OTHER, SELFPAY ==
[2022-09-10 14:03] VITALS: BMI 31.9
[2022-09-24 15:17] LABS: Hematocrit 46.7 % (40-54); Hemoglobin 15.9 g/dL (13.0-16.5); Mean Platelet Vol. 10.7 fl (6.2-12.0); Platelet Count 153 K/mm3 (150-450); RBC Distribution Width CV 13.5 % (11.6-14.6); RBC Distribution Width SD 46.7 fl (35.1-43.9); Red Blood Count 4.97 M/mm3 (4.6-6.2); White Blood Count 7.9 K/mm3 (4.4-11.0)
[2022-09-24 16:06] LABS: ALB/GLOB Ratio 0.9 RATIO (0.9-2.4); AST(SGOT) 85 U/L (15-37); Alanine Aminotransfer ALT/SGPT 86 U/L (16-61); Alkaline Phosphatase 130 U/L (45-117); Anion Gap 8 (5-15); BUN 14 mg/dL (7-18); BUN/Creat Ratio 11.4 RATIO (10-20); Calcium,Total 9.9 mg/dL (8.5-10.1); Chloride 108 mmol/L (98-107); Creatinine, Serum 1.23 mg/dL (0.70-1.30); EST Glomerular Filtration Rate 62 mL/min (>60); Est Glom Filt Rate - Afr Amer 75 mL/min (>60); Globulin 4.3 g/dL (2.2-4.2); Glucose 113 mg/dL (74-106); Potassium 4.2 mmol/L (3.5-5.1); Protein, Total 8.3 g/dL (6.4-8.2); Sodium Level 141 mmol/L (136-145)
== END | disposition home or self-care (01) ==
LOC: LAB 14:27
PROVIDERS: PCP Family Medicine; Referring Provider Internal Medicine Cardiovascular Disease; Visit Provider Internal Medicine Cardiovascular Disease
DX: I49.9 Cardiac arrhythmia, unspecified (principal); Z95.5 Presence of coronary angioplasty implant and graft
CPT/HCPCS: 36415; 80053; 85027

== ENCOUNTER 2022-09-29 14:30 | Outpatient (RCR) | payer MEDICARE, OTHER, SELFPAY | END 2022-09-30 23:59 | LOC: CR 14:30 | PROVIDERS: PCP Family Medicine; Referring Provider Internal Medicine Cardiovascular Disease; Visit Provider Internal Medicine Cardiovascular Disease | DX: Z95.5 Presence of coronary angioplasty implant and graft (principal) | CPT/HCPCS: 93798 ==

== ENCOUNTER 2022-10-31 14:30 | Outpatient (RCR) | payer MEDICARE, OTHER, SELFPAY ==
[2022-09-10 14:03] VITALS: BMI 31.9
--- NOTE | 2022-10-10 10:30 | CR.ITP_ITS ---
Diagnosis Exercise - 30-day Assessment - Visit Date of Eval: 10/10/22 Session #:: 11 - Physician Prescribed Exercise Modalities: Treadmill, Airdyne, NuStep Frequency: 3x/week for 12 weeks [36 sessions] Intensity: 60-80% of age predicted maximum heart rate reserve Current METSs:: 4 Target Heart Rate:: 113-128 Current RPE:: 11 Maximum Excercise HR:: 110 Resting Blood Pressure: 122/64 Maximum Exercise Blood Pressure: 150/80 EKG Type: NSR to ST with rare PAC and occas PVC - Outcomes & Goals Goals:: Verbalizes understanding of THR, RPE & goal METS by session 6, Documents in home exercise log/reports 30 min aerobic 5 day/wk by DC, Demonstrates accurate pulse taking by DC, Other additional outcome/goals: see below - Intervention & Plan Exercise Program Goals: Instruct on personal THR & RPE, Instruct on MET level & personal MET goal, Show patient to take own pulse /validate performance until accurate, Instruct on home exercise, Other additional plan/int - 30-day Reassessments 30 day Reassessments:: Progressing - THR explained - Physical Activity Home Exercise Physical Activity - Home Exercise: Safe Exercise, Warm-up, Self-monitoring, Cool-Down, Home Exercise > 30 min Daily, Sitting Time <3 hours/daily - Outcomes & Goals Outcomes/Goals: Demonstrates correct Warm-up/exercise Cool-Down (S3) if = 2.5 METs, Verbalizes symptoms of exercise intolerance by Session 3 (S3), Demonstrate safe equipment use (S3) & follows exercise prescrition (6), Other: See below - Intervention & Plan Plan/Intervention: Instruct warm-up & cool-down if exercising at > 2 METs, Instr uct on symptoms of exercise intolerance & actions to take, Instruct & monitor on saf, Assess intial functional capacity & safety risk, Other See below - 30-day Reassessments 30 day Reassessments:: Progressing - cool down encouraged Nutrition - Initial Assessment Nutrition - 30-Day Assessment - Program Goals Nutrition Program Goals: LDL <100 optimal. 100 - 129 Near optimal. 130 - 159 Borderline High. 160 - 189 High. Total Cholesterol <200 desirable. 200 - 239 Borderline High. >/= 240 High. HDL < 40 Low >/=60 High. Triglycerides <150 desirable. <199 optimal. VlDL 5 - 40. HgbA1C <7%. BMI <25 Patient has diagnosis of Hyperlipidemia (ICD E78)?: Yes - Visit Date of Assessment:: 10/10/22 Session #:: 11 - Cholesterol/Lipids (Other Core Measures) Determine presence & major risk factors that modify LDL goal: Hypertension or hypertensive medication, Low HDL cholesterol <40 mg/dL*, Family history of premature CHD in Male < 55 years: female <65 yearsFa, Age men > 45 years; women >/= 55 years Outcomes/Goals: Pt IDs own risk factors & lifestyle modifications by Session 10, Verbalizes symptoms of angina & response by session 3., Pt independently manages, Other Additional Outcomes/Goals: Intervention/Plan: Advocate for lipid panel cholesterol medication if applicable, Instruct on personal lipid levels & lipid goals/NCEP guidelines, Instruct on cholesterol, Other additional plan/int 30-day Reassessments:: Progressing - risk factors discussed - Diabetes (Other Core Measures) Diabetes Type: 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 E11 Non-Insulin Dependent?: Yes Do you monitor your blood sugar at home?: Yes Referral to Diabetic Clinic:: No Outcomes/Goals:: Able to state symptoms of, Able to state, Able to state, Other additional Intervention/Plan:: Instruct on, Refer to, Instruct on, Other - Weight Mgt (Other Care) Height: 5 ft 6 in Weight:: 90.265 kg BMI: 32.1 Diagnosis Overweight/Obesity BMI> 30% ICD-10 E66: Yes Outcomes/Goals: Pt sets, maintains & shows weight loss goal & trend during rehab, Other additional outcomes/goals Intervention/Plan: Instruct on ideal BMI & set weight loss goal w/patient, Assist pt to ID & incorporate diet changes for weight loss by S9, Refer to Structured Weight Loss program as appropriate, Encourage goal of using 250- 300dcal per session for weight loss, Other additional plan/interventions 30 day Reassessments:: Progressing - will attend nutrition class - Healthy Eating Habits Will attend diet classes:: Yes Outcomes/Goals:: Consume diet rich in vegs,fruits,whole grain/high fiber,fish,lean meat, Limit sat/trans fats,cholesterol & added salts & sugars, Other additional outcome/goals: Intervention/Plan:: Assess current eating habits, Other Additional plan/interventions 30-day Reassessments:: Progressing - will attend nutrition class - Education Gave educational materials for:: Signs & symptoms of hypoglycemia, Signs & symptoms of hyperglycemia, Relate diabetes to coronary artery disease, Healthy eating Nutrition - 60-Day Assessment Nutrition - 90-Day Assessment Nutrition - Final Assessment Core - Initial Assessment Core - 30-Day Assessment - Visit Date of Eval: 10/10/22 Session #:: 11 - Medication Compliance Preventative Medication(s):: Aspirin, Statin/lipid, Beta saida H/O mental health issues: depression, anxiety, or addiction?: No Doesn?t believe in the benefits of treatment?: No Believes medications are unnecessary or harmful?: No Has a concern about medication side effects?: No Expresses concern over the cost of medications?: No Outcomes/Goals: Verbalizes medications,desired effect & common side effects @ DC, Pt self-reports following medication regimen, Keeps card in wallet w/medications listed by DC, Other additional outcome/goals: Interventions/plans: Instruct on medication effects & side effects, Review medication list w/patient every two weeks, Instruct importance of taking meds as ordered & assist problem solving, Other additional 30-day Reassessments:: Progressing - encouraged to take meds - Tobacco Use Tobacco Use: Non-smoker - Hypertension Hypertension Diagnosis:: Hypertension ICD-10 I10 Resting Blood Pressure:: 122/64 [place] [employer] Hypertension Guidelines: [place] [employer] Hypertension Guidelines. Normal BP Less than 120/80. Elevated BP 120/80. Hypertension Stage 1: BP 130-139/80-89. Hypertesnion Stage 2: BP 140 or higher/90 or higher. Hypertension Crisis: BP higher than 180/120 Peak Exercise Blood Pressure:: 150/80 Outcomes/Goals: Able to verbalize/achieve optimal blood pressure <130/80, Incorporates diet changes & exercise for blood pressure control by DC, Other additional outcomes/goals Interventions/plan: Instruct on optimal blood pressure, hypertension & medications, Instruct on effects of sodium, alcohol, stress, exercise &hypertension, Other additional plan/interventions 30 day Reassessments:: Progressing - encouraged to take meds - Tobacco Cessation Referral Smoking Cessation Referral:: No Individual Education/Counseling:: No Education Schedule Given:: Yes Core - 60-Day Assessment Core - 90 Day Assessment Core - Final Assessment Psychosocial - Initial Assess Psychosocial - 30-Day Assess - VIsit Date of Eval: 10/10/22 Session #:: 11 Psychosocial - 60-Day Assess Psychosocial - 90-Day Assess Psychosocial - Final Assessmen Patient Health Questionnaire 30-Day Re-eval Assessment 1. Little interest or pleasure in doing things: Not at all 2. Feeling down, depressed, or hopeless: Not at all 3. Trouble falling or staying asleep, or sleeping too much: Not at all 4. Feeling tired or having little energy: Not at all 5. Poor appetite or overeating: Not at all 6. Feeling bad about yourself -- or that you are a failure or have let yourself or your family down: Not at all 7. Trouble concentrating on things, such as reading the newspaper or watching television: Not at all 8. Moving or speaking so slowly that other people could have noticed. Or the opposite - being so fidgety or restless that you have been moving around a lot more than usual: Not at all How difficult have these problems made it for you to do your work, take care of things at home, or get along with other people?: Not difficult at all Total Score: 0 Self-Efficacy 30-Day Re-eval Assessment We would like to know how confident you are in doing certain activities. Please select your confidence level for:: Select your confidence level for the following using the scale 1-10 where 1 is not at all confident and 10 is totally confident. Your score is the average of all 6 responses. Fatigue: How confident are you that you can keep the fatigue caused by your disease from interfering with the things you want to do? Select Number: 8 Physical Discomfort or Pain: How confident are you that you can keep the physical discomfort or pain of your disease from interfering with the things you want to do? Select Number: 8 Emotional Distress: How confident are you that you can keep the emotional distress caused by your disease from interfering with the things you want to do? Select Number: 8 Other Symptoms or Health Problems: How confident are you that you can keep other symptoms or health problems from interfering with the things you want to do? Select Number: 7 Different Tasks and Activities: How confident are you that you can do the different tasks and activities needed to manage your health condition so as to reduce your need to see a doctor? Select Number: 9 Medication: How confident are you that you can do things other than just taking medication to reduce how much your illness affects your everyday life? Select Number: 9 Total Score:: 8 Nutrition Survey
[2022-10-10 10:41] VITALS: BP 122/64; BP 150/80; BMI 32.1
== END 2022-10-31 23:59 ==
LOC: CR 14:30
PROVIDERS: PCP Family Medicine; Referring Provider Internal Medicine Cardiovascular Disease; Visit Provider Internal Medicine Cardiovascular Disease
DX: Z95.5 Presence of coronary angioplasty implant and graft (principal)
CPT/HCPCS: 93798

== ENCOUNTER → 2022-11-26 | Outpatient (CLI) | payer MEDICARE, OTHER, SELFPAY ==
[2022-11-07 11:52] VITALS: BMI 31.6
[2022-11-26 11:19] LABS: AST(SGOT) 58 U/L (15-37); Alanine Aminotransfer ALT/SGPT 56 U/L (16-61); Albumin, Serum 3.7 g/dL (3.2-5.0); Alkaline Phosphatase 157 U/L (45-117); Cholesterol 114 mg/dL (200); Globulin 4.2 g/dL (2.2-4.2); High Density Lipoprotein 40 mg/dL; Protein, Total 7.9 g/dL (6.4-8.2); Triglycerides 102 mg/dL; Very Low Density Lipoprotein 20 mg/dL (5-40)
== END | disposition home or self-care (01) ==
PROVIDERS: PCP Family Medicine; Referring Provider Internal Medicine Cardiovascular Disease; Visit Provider Internal Medicine Cardiovascular Disease
DX: E78.5 Hyperlipidemia, unspecified (principal); I25.10 Atherosclerotic heart disease of native coronary artery without angina pectoris; Z95.5 Presence of coronary angioplasty implant and graft
CPT/HCPCS: 36415; 80061; 80076

== ENCOUNTER 2022-11-28 14:30 | Outpatient (RCR) | payer MEDICARE, OTHER, SELFPAY ==
[2022-10-10 10:41] VITALS: BMI 32.1
[2022-11-01 01:58] VITALS: BP 122/64; BP 150/80
--- NOTE | 2022-11-07 11:45 | CR.ITP_ITS ---
Diagnosis Exercise - 60-day Assessment - Visit Date of Eval: 11/07/22 Session #:: 22 - Physician Prescribed Exercise Modalities: Treadmill, Airdyne, NuStep Frequency: 3x/week for 12 weeks [36 sessions] Intensity: 60-80% of age predicted maximum heart rate reserve Duration: 30 - 45 minutes Current METSs:: 7.0 Target Heart Rate:: 113-128 Current RPE:: 12 Maximum Excercise HR:: 116 Resting Blood Pressure: 108/68 Maximum Exercise Blood Pressure: 180/88 EKG Type: NSR to St, occasional PVC. Slight ST depression noted Current Physical Activity or Exercising minutes: 36 - Outcomes & Goals Goals:: Verbalizes understanding of THR, RPE & goal METS by session 6, Documents in home exercise log/reports 30 min aerobic 5 day/wk by DC, Demonstrates accurate pulse taking by DC - Intervention & Plan Exercise Program Goals: Instruct on personal THR & RPE, Instruct on MET level & personal MET goal, Show patient to take own pulse /validate performance until accurate, Instruct on home exercise - 30-day Reassessments 30 day Reassessments:: Met - Physical Activity Home Exercise Physical Activity - Home Exercise: Safe Exercise, Warm-up, Self-monitoring, Cool-Down, Home Exercise > 30 min Daily, Sitting Time <3 hours/daily - Outcomes & Goals Outcomes/Goals: Demonstrates correct Warm-up/exercise Cool-Down (S3) if = 2.5 METs, Verbalizes symptoms of exercise intolerance by Session 3 (S3), Demonstrate safe equipment use (S3) & follows exercise prescrition (6) - Intervention & Plan Plan/Intervention: Instruct warm-up & cool-down if exercising at > 2 METs, Instruct on symptoms of exercise intolerance & actions to take, Instruct & monitor on saf, Assess intial functional capacity & safety risk - 30-day Reassessments 30 day Reassessments:: Met Nutrition - Initial Assessment Nutrition - 30-Day Assessment Nutrition - 60-Day Assessment - Program Goals Nutrition Program Goals: LDL <100 optimal. 100 - 129 Near optimal. 130 - 159 Borderline High. 160 - 189 High. Total Cholesterol <200 desirable. 200 - 239 Borderline High. >/= 240 High. HDL < 40 Low >/=60 High. Triglycerides <150 desirable. <199 optimal. VlDL 5 - 40. HgbA1C <7%. BMI <25 Patient has diagnosis of Hyperlipidemia (ICD E78)?: Yes - Visit Date of Assessment:: 11/07/22 Session #:: 23 - Cholesterol/Lipids (Other Core Measures) Triglycerides (mg/dL): 171 Total Cholesterol (mg/dL): 103 LDL Cholesterol (mg/dL): 36 HDL Cholesterol (mg/dL): 33 Determine presence & major risk factors that modify LDL goal: Hypertension or hypertensive medication, Low HDL cholesterol <40 mg/dL*, Age men > 45 years; women >/= 55 years Outcomes/Goals: Pt IDs own risk factors & lifestyle modifications by Session 10, Verbalizes symptoms of angina & response by session 3., Pt independently manages Intervention/Plan: Instruct on personal lipid levels & lipid goals/NCEP guidelines, Instruct on cholesterol Referral to dietitian:: Yes - Medical Nutrition Therapy 30-day Reassessments:: Progressing - Diabetes (Other Core Measures) Diabetes Type: Not Applicable - Weight Mgt (Other Care) Not Applicable: Yes Height: 5 ft 6 in Weight:: 196 lb BMI: 31.6 Diagnosis Overweight/Obesity BMI> 30% ICD-10 E66: Yes Diagnosis High BMI/Morbid Obesity BMI> 35% ICD-10 Z68: No Outcomes/Goals: Pt sets, maintains & shows weight loss goal & trend during rehab Intervention/Plan: Instruct on ideal BMI & set weight loss goal w/patient, Assist pt to ID & incorporate diet changes for weight loss by S9, Refer to Structured Weight Loss program as appropriate, Encourage goal of using 250- 300dcal per session for weight loss 30 day Reassessments:: Progressing - Healthy Eating Habits Will attend diet classes:: Yes Outcomes/Goals:: Consume diet rich in vegs,fruits,whole grain/high fiber,fish,lean meat, Limit sat/trans fats,cholesterol & added salts & sugars Intervention/Plan:: Assess current eating habits 30-day Reassessments:: Progressing - Education Gave educational materials for:: Healthy eating Nutrition - 90-Day Assessment Nutrition - Final Assessment Core - Initial Assessment Core - 30-Day Assessment Core - 60-Day Assessment - Visit Date of Eval: 11/07/22 Session #:: 23 - Medication Compliance Preventative Medication(s):: Aspirin, Clopidogrel/P2Y12 inhibit, Statin/lipid H/O mental health issues: depression, anxiety, or addiction?: No Doesn?t believe in the benefits of treatment?: No Believes medications are unnecessary or harmful?: No Has a concern about medication side effects?: No Expresses concern over the cost of medications?: No Outcomes/Goals: Verbalizes medications,desired effect & common side effects @ DC, Pt self-reports following medication regimen, Keeps card in wallet w/medications listed by DC Interventions/plans: Instruct on medication effects & side effects, Review medication list w/patient every two weeks, Instruct importance of taking meds as ordered & assist problem solving 30-day Reassessments:: Met - Tobacco Use Tobacco Use: Non-smoker - Hypertension Hypertension Diagnosis:: Hypertension ICD-10 I10 Resting Blood Pressure:: 108/68 [place] [employer] Hypertension Guidelines: [place] [employer] Hypertension Guidelines. Normal BP Less than 120/80. Elevated BP 120/80. Hypertension Stage 1: BP 130-139/80-89. Hypertesnion Stage 2: BP 140 or higher/90 or higher. Hypertension Crisis: BP higher than 180/120 Peak Exercise Blood Pressure:: 180/88 Outcomes/Goals: Able to verbalize/achieve optimal blood pressure <130/80 Interventions/plan: Instruct on optimal blood pressure, hypertension & medications, Instruct on effects of sodium, alcohol, stress, exercise &hyp ertension 30 day Reassessments:: Progressing - Tobacco Cessation Referral Smoking Cessation Referral:: No Individual Education/Counseling:: No Education Schedule Given:: Yes Core - 90 Day Assessment Core - Final Assessment Psychosocial - Initial Assess Psychosocial - 30-Day Assess Psychosocial - 60-Day Assess - VIsit Date of Eval: 11/07/22 Session #:: 23 Not Applicable: Yes History of previous Mental disease:: No - Psychosocial Test Tool Used:: PHQ-9 Questionnaire phq-9 Severity: Severity. 1-4 Minimal Depression. 5-9 Mild Depression. 10-14 Moderate Depression. 15-19 Moderately Sever Depression. 20-27 Severe Depression. Rule: - Referral to Behavioral Health PS - Interventions: Yes Attend Stress Management Classes, No Referral to Behavioral Health if PHQ-9 score >9:, No Referral to [facility], No Referral to Physician if PHQ-9 if score is 5-9: - Outcomes/Goals: See list Psychosocial Outcomes/Goals:: ID's personal stressors & 2 strategies to manage stress by discharge - Intervention/Plan: See List Interventions/Plan:: Assess stressors,coping strategies & signs of derpression on admission, Instruct/assist pt to develop coping & personal stress Mgt strategies, Instruct patient to recognize signs & symptoms of depression, Instruct patient to recog - 30-day Reassessments: 30 day Reassessments:: Met Psychosocial - 90-Day Assess Psychosocial - Final Assessmen Patient Health Questionnaire 60-Day Re-eval Assessment 1. Little interest or pleasure in doing things: Not at all 2. Feeling down, depressed, or hopeless: Not at all 3. Trouble falling or staying asleep, or sleeping too much: Not at all 4. Feeling tired or having little energy: Not at all 5. Poor appetite or overeating: Not at all 6. Feeling bad about yourself -- or that you are a failure or have let yourself or your family down: Not at all 7. Trouble concentrating on things, such as reading the newspaper or watching television: Not at all 8. Moving or speaking so slowly that other people could have noticed. Or the opposite - being so fidgety or restless that you have been moving around a lot more than usual: Not at all 9. Thoughts that you would be better off , or of hurting yourself in some way: Not at all How difficult have these problems made it for you to do your work, take care of things at home, or get along with other people?: Not difficult at all Total Score: 0 Self-Efficacy 60-Day Re-eval Assessment We would like to know how confident you are in doing certain activities. Please select your confidence level for:: Select your confidence level for the following using the scale 1-10 where 1 is not at all confident and 10 is totally confident. Your score is the average of all 6 responses. Fatigue: How confident are you that you can keep the fatigue caused by your disease from interfering with the things you want to do? Select Number: 10 Physical Discomfort or Pain: How confident are you that you can keep the physical discomfort or pain of your disease from interfering with the things you want to do? Select Number: 10 Emotional Distress: How confident are you that you can keep the emotional distress caused by your disease from interfering with the things you want to do? Select Number: 10 Other Symptoms or Health Problems: How confident are you that you can keep other symptoms or health problems from interfering with the things you want to do? Select Number: 10 Different Tasks and Activities: How confident are you that you can do the different tasks and activities needed to manage your health condition so as to reduce your need to see a doctor? Select Number: 10 Medication: How confident are you that you can do things other than just taking medication to reduce how much your illness affects your everyday life? Select Number: 10 Total Score:: 10 Nutrition Survey
[2022-11-07 11:52] VITALS: BP 108/68; BP 180/88; BMI 31.6
== END 2022-11-30 23:59 ==
LOC: CR 14:30
PROVIDERS: PCP Family Medicine; Referring Provider Internal Medicine Cardiovascular Disease; Visit Provider Internal Medicine Cardiovascular Disease
DX: Z95.5 Presence of coronary angioplasty implant and graft (principal)
CPT/HCPCS: 93798

== ENCOUNTER 2022-12-08 14:15 | Outpatient (RCR) | payer MEDICARE, OTHER, SELFPAY ==
[2022-11-07 11:52] VITALS: BMI 31.6
[2022-12-01 00:38] VITALS: BP 108/68; BP 180/88
--- NOTE | 2022-12-08 09:23 | CR.ITP_ITS ---
Diagnosis Exercise - 90-day Assessment - Visit Date of Eval: 12/08/22 Session #:: 35 - Physician Prescribed Exercise Modalities: Treadmill, Airdyne, NuStep Frequency: 3x/week for 12 weeks [36 sessions] Intensity: 60-80% of age predicted maximum heart rate reserve Current METSs:: 7.5 Target Heart Rate:: 113-128 Current RPE:: 12-13 Maximum Excercise HR:: 136 Resting Blood Pressure: 108/70 Maximum Exercise Blood Pressure: 170/82 EKG Type: NSR to ST w/rare pvc,pac. Rare vent trigeminy. Slight ST depression - Outcomes & Goals Goals:: Verbalizes understanding of THR, RPE & goal METS by session 6, Documents in home exercise log/reports 30 min aerobic 5 day/wk by DC, Demonstrates accurate pulse taking by DC, Other additional outcome/goals: see below - Intervention & Plan Exercise Program Goals: Instruct on personal THR & RPE, Instruct on MET level & personal MET goal, Show patient to take own pulse /validate performance until accurate, Instruct on home exercise, Other additional plan/int - 30-day Reassessments 30 day Reassessments:: Met - Physical Activity Home Exercise Physical Activity - Home Exercise: Safe Exercise, Warm-up, Self-monitoring, Cool-Down, Home Exercise > 30 min Daily, Sitting Time <3 hours/daily - Outcomes & Goals Outcomes/Goals: Demonstrates correct Warm-up/exercise Cool-Down (S3) if = 2.5 METs, Verbalizes symptoms of exercise intolerance by Session 3 (S3), Demonstrate safe equipment use (S3) & follows exercise prescrition (6), Other: See below - Intervention & Plan Plan/Intervention: Instruct warm-up & cool-down if exercising at > 2 METs, Instruct on symptoms of exercise intolerance & actions to take, Instruct & monitor on saf, Assess intial functional capacity & safety risk, Other See below - 30-day Reassessments 30 day Reassessments:: Met Nutrition - Initial Assessment Nutrition - 30-Day Assessment Nutrition - 60-Day Assessment Nutrition - 90-Day Assessment - Program Goals Nutrition Program Goals: LDL <100 optimal. 100 - 129 Near optimal. 130 - 159 Borderline High. 160 - 189 High. Total Cholesterol <200 desirable. 200 - 239 Borderline High. >/= 240 High. HDL < 40 Low >/=60 High. Triglycerides <150 desirable. <199 optimal. VlDL 5 - 40. HgbA1C <7%. BMI <25 Patient has diagnosis of Hyperlipidemia (ICD E78)?: Yes - Visit Date of Assessment:: 12/08/22 Session #:: 35 - Cholesterol/Lipids (Other Core Measures) Determine presence & major risk factors that modify LDL goal: Hypertension or hypertensive medication, Low HDL cholesterol <40 mg/dL*, Family history of premature CHD in Male < 55 years: female <65 yearsFa, Age men > 45 years; women >/= 55 years Referral to dietitian:: Yes - pt is scheduled to meet with dietitian 30-day Reassessments:: Met - Diabetes (Other Core Measures) Diabetes Type: Not Applicable - Weight Mgt (Other Care) Height: 5 ft 6 in Weight:: 90.718 kg BMI: 32.3 Diagnosis Overweight/Obesity BMI> 30% ICD-10 E66: Yes Diagnosis High BMI/Morbid Obesity BMI> 35% ICD-10 Z68: No Outcomes/Goals: Pt sets, maintains & shows weight loss goal & trend during rehab, Other additional outcomes/goals Intervention/Plan: Instruct on ideal BMI & set weight loss goal w/patient, Assist pt to ID & incorporate diet changes for weight loss by S9, Refer to Structured Weight Loss program as appropriate, Encourage goal of using 250- 300dcal per session for weight loss, Other additional plan/interventions 30 day Reassessments:: Met - scheduled to meet dietitian - Healthy Eating Habits Will attend diet classes:: Yes Outcomes/Goals:: Consume diet rich in vegs,fruits,whole grain/high fiber,fish,lean meat, Limit sat/trans fats,cholesterol & added salts & sugars, Other additional outcome/goals: Intervention/Plan:: Assess current eating habits, Other Additional plan/interventions 30-day Reassessments:: Met - Education Gave educational materials for:: Signs & symptoms of hypoglycemia, Signs & symptoms of hyperglycemia, Relate diabetes to coronary artery disease, Healthy eating Nutrition - Final Assessment Core - Initial Assessment Core - 30-Day Assessment Core - 60-Day Assessment Core - 90 Day Assessment - Visit Date of Eval: 12/08/22 Session #:: 35 - Medication Compliance Preventative Medication(s):: Aspirin, Clopidogrel/P2Y12 inhibit, Statin/lipid H/O mental health issues: depression, anxiety, or addiction?: No Doesn?t believe in the benefits of treatment?: No Believes medications are unnecessary or harmful?: No Has a concern about medication side effects?: No Expresses concern over the cost of medications?: No Outcomes/Goals: Verbalizes medications,desired effect & common side effects @ DC, Pt self-reports following medication regimen, Keeps card in wallet w/medications listed by DC, Other additional outcome/goals: Interventions/plans: Instruct on medication effects & side effects, Review medication list w/patient every two weeks, Instruct importance of taking meds as ordered & assist problem solving, Other additional 30-day Reassessments:: Met - Tobacco Use Tobacco Use: Non-smoker - Hypertension Hypertension Diagnosis:: Hypertension ICD-10 I10 Resting Blood Pressure:: 108/70 [employer] Hypertension Guidelines: [place] [employer] Hypertension Guidelines. Normal BP Less than 120/80. Elevated BP 120/80. Hypertension Stage 1: BP 130-139/80-89. Hypertesnion Stage 2: BP 140 or higher/90 or higher. Hypertension Crisis: BP higher than 180/120 Peak Exercise Blood Pressure:: 170/82 Outcomes/Goals: Able to verbalize/achieve optimal blood pressure <130/80, Incorporates diet changes & exercise for blood pressure control by DC, Other additional outcomes/goals Interventions/plan: Instruct on optimal blood pressure, hypertension & medications, Instruct on effects of sodium, alcohol, stress, exercise &hypertension, Other additional plan/interventions 30 day Reassessments:: Met - Tobacco Cessation Referral Smoking Cessation Referral:: No Individual Education/Counseling:: No Education Schedule Given:: Yes Core - Final Assessment Psychosocial - Initial Assess Psychosocial - 30-Day Assess Psychosocial - 60-Day Assess Psychosocial - 90-Day Assess - VIsit Date of Eval: 12/08/22 Session #:: 35 History of previous Mental disease:: No Psychosocial - Final Assessmen Patient Health Questionnaire 90-Day Re-eval Assessment 1. Little interest or pleasure in doing things: Not at all 2. Feeling down, depressed, or hopeless: Not at all 3. Trouble falling or staying asleep, or sleeping too much: Not at all 4. Feeling tired or having little energy: Not at all 5. Poor appetite or overeating: Not at all 6. Feeling bad about yourself -- or that you are a failure or have let yourself or your family down: Not at all 7. Trouble concentrating on things, such as reading the newspaper or watching television: Not at all 8. Moving or speaking so slowly that other people could have noticed. Or the opposite - being so fidgety or restless that you have been moving around a lot more than usual: Not at all 9. Thoughts that you would be better off , or of hurting yourself in some way: Not at all How difficult have these problems made it for you to do your work, take care of things at home, or get along with other people?: Not difficult at all Total Score: 0 Self-Efficacy 90-Day Re-eval Assessment We would like to know how confident you are in doing certain activities. Please select your confidence level for:: Select your confidence level for the following using the scale 1-10 where 1 is not at all confident and 10 is totally confident. Your score is the average of all 6 responses. Fatigue: How confident are you that you can keep the fatigue caused by your disease from interfering with the things you want to do? Select Number: 10 Physical Discomfort or Pain: How confident are you that you can keep the physical discomfort or pain of your disease from interfering with the things you want to do? Select Number: 10 Emotional Distress: How confident are you that you can keep the emotional distress caused by your disease from interfering with the things you want to do? Select Number: 10 Other Symptoms or Health Problems: How confident are you that you can keep other symptoms or health problems from interfering with the things you want to do? Select Number: 10 Different Tasks and Activities: How confident are you that you can do the different tasks and activities needed to manage your health condition so as to reduce your need to see a doctor? Select Number: 10 Medication: How confident are you that you can do things other than just taking medication to reduce how much your illness affects your everyday life? Select Number: 10 Total Score:: 10 Nutrition Survey
[2022-12-08 09:33] VITALS: BP 108/70; BP 170/82; BMI 32.3
== END 2022-12-31 23:59 ==
LOC: CR 14:15
PROVIDERS: PCP Family Medicine; Referring Provider Internal Medicine Cardiovascular Disease; Visit Provider Internal Medicine Cardiovascular Disease
DX: Z95.5 Presence of coronary angioplasty implant and graft (principal)
CPT/HCPCS: 93798

== ENCOUNTER 2022-12-10 14:43 | Outpatient (RCR) | payer MEDICARE, OTHER, SELFPAY ==
[2022-11-07 11:52] VITALS: BMI 31.6
== END 2022-12-31 23:59 ==
LOC: NS 14:43
PROVIDERS: PCP Family Medicine; Referring Provider Internal Medicine Cardiovascular Disease; Visit Provider Internal Medicine Cardiovascular Disease
DX: I10 Essential (primary) hypertension (principal); E78.5 Hyperlipidemia, unspecified; I25.10 Atherosclerotic heart disease of native coronary artery without angina pectoris; E11.9 Type 2 diabetes mellitus without complications
CPT/HCPCS: 97802

== ENCOUNTER → 2022-12-19 | Outpatient (CLI) | payer MEDICARE, OTHER, SELFPAY ==
[2022-12-08 09:33] VITALS: BMI 32.3
[2022-12-19 10:10] LABS: AST(SGOT) 55 U/L (15-37); Alanine Aminotransfer ALT/SGPT 65 U/L (16-61); Albumin, Serum 3.6 g/dL (3.2-5.0); Alkaline Phosphatase 164 U/L (45-117); Bilirubin, Direct 0.12 mg/dL (0.00-0.30); Cholesterol 227 mg/dL (200); Globulin 4.1 g/dL (2.2-4.2); High Density Lipoprotein 34 mg/dL; Protein, Total 7.7 g/dL (6.4-8.2); Triglycerides 346 mg/dL; Very Low Density Lipoprotein 69 mg/dL (5-40)
== END | disposition home or self-care (01) ==
LOC: LAB 09:14
PROVIDERS: PCP Family Medicine; Referring Provider Internal Medicine Cardiovascular Disease; Visit Provider Internal Medicine Cardiovascular Disease
DX: I25.10 Atherosclerotic heart disease of native coronary artery without angina pectoris (principal); R79.89 Other specified abnormal findings of blood chemistry; E78.5 Hyperlipidemia, unspecified
CPT/HCPCS: 36415; 80061; 80076

== ENCOUNTER → 2023-03-18 | Outpatient (CLI) | payer MEDICARE, OTHER, SELFPAY ==
[2023-03-18 15:00] LABS: AST(SGOT) 55 U/L (15-37); Alanine Aminotransfer ALT/SGPT 73 U/L (16-61); Albumin, Serum 3.4 g/dL (3.2-5.0); Alkaline Phosphatase 132 U/L (45-117); Cholesterol 232 mg/dL (200); Globulin 4.1 g/dL (2.2-4.2); High Density Lipoprotein 43 mg/dL; Protein, Total 7.5 g/dL (6.4-8.2); Triglycerides 152 mg/dL; Very Low Density Lipoprotein 30 mg/dL (5-40)
== END | disposition home or self-care (01) ==
PROVIDERS: PCP Family Medicine; Referring Provider Nurse Practitioner Gerontology; Visit Provider Nurse Practitioner Gerontology
DX: I25.10 Atherosclerotic heart disease of native coronary artery without angina pectoris (principal); E78.5 Hyperlipidemia, unspecified; R79.89 Other specified abnormal findings of blood chemistry
CPT/HCPCS: 36415; 80061; 80076

== ENCOUNTER → 2023-07-08 | Outpatient (CLI) | payer MEDICARE, OTHER, SELFPAY ==
[2023-07-08 10:26] LABS: AST(SGOT) 57 U/L (15-37); Alanine Aminotransfer ALT/SGPT 72 U/L (16-61); Albumin, Serum 3.7 g/dL (3.2-5.0); Alkaline Phosphatase 117 U/L (45-117); Cholesterol 146 mg/dL (200); Globulin 3.9 g/dL (2.2-4.2); High Density Lipoprotein 52 mg/dL; Protein, Total 7.6 g/dL (6.4-8.2); Triglycerides 185 mg/dL; Very Low Density Lipoprotein 37 mg/dL (5-40)
== END | disposition home or self-care (01) ==
LOC: LAB 09:51
PROVIDERS: PCP Family Medicine; Referring Provider Nurse Practitioner Gerontology; Visit Provider Nurse Practitioner Gerontology
DX: R79.89 Other specified abnormal findings of blood chemistry (principal); E11.9 Type 2 diabetes mellitus without complications; I25.10 Atherosclerotic heart disease of native coronary artery without angina pectoris; E78.5 Hyperlipidemia, unspecified
CPT/HCPCS: 36415; 80061; 80076

== ENCOUNTER → 2024-01-06 | Outpatient (CLI) | payer MEDICARE, OTHER, SELFPAY ==
[2024-01-06 10:46] LABS: AST(SGOT) 61 U/L (15-37); Alanine Aminotransfer ALT/SGPT 67 U/L (16-61); Albumin, Serum 3.5 g/dL (3.2-5.0); Alkaline Phosphatase 133 U/L (45-117); Bilirubin, Direct 0.29 mg/dL (0.00-0.30); Cholesterol 133 mg/dL (200); Globulin 3.7 g/dL (2.2-4.2); High Density Lipoprotein 46 mg/dL; Protein, Total 7.2 g/dL (6.4-8.2); Triglycerides 121 mg/dL; Very Low Density Lipoprotein 24 mg/dL (5-40)
== END | disposition home or self-care (01) ==
LOC: LAB 08:56
PROVIDERS: PCP Family Medicine; Referring Provider Nurse Practitioner Gerontology; Visit Provider Nurse Practitioner Gerontology
DX: E78.00 Pure hypercholesterolemia, unspecified (principal)
CPT/HCPCS: 36415; 80061; 80076

== ENCOUNTER → 2024-06-22 | Outpatient (CLI) | payer MEDICARE, OTHER, SELFPAY ==
[2024-06-22 10:39] LABS: AST(SGOT) 39 U/L (15-37); Alanine Aminotransfer ALT/SGPT 46 U/L (16-61); Albumin, Serum 3.4 g/dL (3.2-5.0); Alkaline Phosphatase 101 U/L (45-117); Bilirubin, Direct 0.34 mg/dL (0.00-0.30); Cholesterol 156 mg/dL (200); Globulin 4.3 g/dL (2.2-4.2); High Density Lipoprotein 64 mg/dL; Protein, Total 7.7 g/dL (6.4-8.2); Triglycerides 109 mg/dL; Very Low Density Lipoprotein 22 mg/dL (5-40)
== END | disposition home or self-care (01) ==
LOC: LAB 08:51
PROVIDERS: PCP Family Medicine; Referring Provider Nurse Practitioner Gerontology; Visit Provider Nurse Practitioner Gerontology
DX: E78.00 Pure hypercholesterolemia, unspecified (principal)
CPT/HCPCS: 36415; 80061; 80076

== ENCOUNTER → 2024-11-30 | Outpatient (CLI) | payer MEDICARE, OTHER, SELFPAY ==
[2024-11-30 10:07] LABS: Cholesterol 169 mg/dL (<=200); High Density Lipoprotein 48 mg/dL; Low Density Lipoprotein Calc. 95 mg/dL; Triglycerides 134 mg/dL; Very Low Density Lipoprotein 27 mg/dL (5-40); cholesterol:hdl ratio screen 3.56
[2024-11-30 10:13] LABS: AST(SGOT) 49 U/L (<=37); Alanine Aminotransfer ALT/SGPT 46 U/L (<=46); Albumin, Serum 4.2 g/dL (3.4-4.8); Alkaline Phosphatase 138 U/L (40-129); Bilirubin, Direct 0.22 mg/dL (0.00-0.30); Globulin 3.3 g/dL (2.2-4.2); Protein, Total 7.5 g/dL (5.9-8.4); Total Bilirubin 0.78 mg/dL (0.00-1.30)
== END | disposition home or self-care (01) ==
LOC: LAB 08:46
PROVIDERS: PCP Family Medicine; Referring Provider Nurse Practitioner Gerontology; Visit Provider Nurse Practitioner Gerontology
DX: E78.00 Pure hypercholesterolemia, unspecified (principal)
CPT/HCPCS: 36415; 80061; 80076

== ENCOUNTER → 2025-03-09 | Outpatient (CLI) | payer MEDICARE, OTHER, SELFPAY ==
[2025-03-09 12:17] LABS: AST(SGOT) 41 U/L (<=37); Alanine Aminotransfer ALT/SGPT 39 U/L (<=46); Albumin, Serum 4.0 g/dL (3.4-4.8); Alkaline Phosphatase 98 U/L (40-129); Bilirubin, Direct 0.40 mg/dL (0.00-0.30); Cholesterol 135 mg/dL (<=200); Globulin 2.8 g/dL (2.2-4.2); Low Density Lipoprotein Calc. 55 mg/dL; Triglycerides 141 mg/dL; Very Low Density Lipoprotein 28 mg/dL (5-40); cholesterol:hdl ratio screen 2.62
== END | disposition home or self-care (01) ==
LOC: LAB 08:41
PROVIDERS: PCP Family Medicine; Referring Provider Nurse Practitioner Gerontology; Visit Provider Nurse Practitioner Gerontology
DX: E78.5 Hyperlipidemia, unspecified (principal)
CPT/HCPCS: 36415; 80061; 80076